=== PATIENT | female | born 1965 | race Caucasian/White ===

== ENCOUNTER → 2017-04-27 | Outpatient (CLI) | payer OTHER ==
[2017-04-27 08:05] LABS: Basophils # (A) 0.1 k/uL (0-0.2); Basophils % (A) 1 %; CH 32.3; CHCM 34.2; Eosinophils # (A) 0.3 k/uL (0-0.7); Eosinophils % (A) 3 %; HCT 46.1 % (34.0-46.0); HDW 2.33; HGB 15.1 gm/dL (11.4-16.0); Luc % (Auto) 4; Lymphocytes # (A) 3.2 k/uL (1.0-4.8); Lymphocytes % (A) 35 %; MCHC 32.7 g/dL (31.0-37.0); MCV 94.9 fL (80.0-100.0); Mean Platelet Volume 7.1; Monocytes # (A) 0.5 k/uL (0-1.0); Monocytes % (A) 5 %; Neutrophils # (A) 4.6 k/uL (1.3-7.7); Neutrophils % (A) 51 %; RBC 4.86 m/uL (3.80-5.40); RDW 14.5 % (11.5-15.5); WBC 9.1 k/uL (3.8-10.6); WBC (Perox) 8.97
[2017-04-27 08:46] LABS: ALT 31 U/L (9-52); AST 17 U/L (14-36); Alkaline Phosphatase 90 U/L (38-126); Anion Gap 9 mmol/L; Blood Urea Nitrogen 14 mg/dL (7-17); Calcium 9.7 mg/dL (8.4-10.2); Carbon Dioxide 29 mmol/L (22-30); Chloride 102 mmol/L (98-107); Cholesterol 216 mg/dL (<200); Glucose 83 mg/dL (74-99); HDL Cholesterol 61 mg/dL (40-60); Non-African American GFR(MDRD) >60 (>60 ml/min/1.73 sqM); Potassium 4.4 mmol/L (3.5-5.1); Sodium 140 mmol/L (137-145); Total Bilirubin 0.6 mg/dL (0.2-1.3); Total Protein 7.1 g/dL (6.3-8.2)
== END | disposition home or self-care (01) ==
LOC: LABWHC1 06:35
PROVIDERS: ATTEND Internal Medicine
DX: Z00.00 Encounter for general adult medical examination without abnormal findings (principal); E78.5 Hyperlipidemia, unspecified; H81.09 Meniere's disease, unspecified ear
CPT/HCPCS: 36415; 80053; 80061; 84439; 84443; 85025

== ENCOUNTER 2017-05-22 09:48 | Day surgery (SDC) | payer OTHER ==
[2017-05-18 08:45] VITALS: BMI 30.7
[~2017-05-22 09:48] MED LIST: LACTATED RINGERS 1,000 ML IV SCH
[2017-05-22 10:44] VITALS: TEMP 97.8
[2017-05-22] MEDS ORDERED: PROPOFOL 10 MG/ML 20 ML VIAL IV ONE (10:58)
--- NOTE | 2017-05-22 11:23 | P.PCN ---
Date of Procedure: 05/22/17 Procedure(s) Performed: Procedure: Total colonoscopy. Preoperative diagnosis: Screening for neoplasia. Postoperative diagnosis: Exam within normal limits. Preparation: HalfLytely prep. Sedation: Was provided by anesthesia. Brief clinical history: The patient is a 52-year-old female who is scheduled for this evaluation because of age as her risk factor for screening for neoplasia. There is no family history of colon cancer. She has no abdominal complaints, bleeding or anemia. This would be her second colonoscopy. She, apparently, had an exam more than 8 years ago for bowel infection. Procedure: With the patient on her left lateral decubitus position and after informed consent and adequate sedation, the perianal area was inspected and it did not show any fissures or fistulas. There were no masses felt on digital rectal examination. The Olympus CFQ 160L video colonoscope was then inserted in the rectum in the usual fashion and advanced to the cecum. The mucosa appeared healthy. No polyps or tumors were seen or any obvious diverticular disease or other pathology. I retroflexed the endoscope in the rectum before the endoscope was withdrawn. The patient tolerated the procedure well. Plan: The patient was reassured. She will follow up with you as planned and I recommended repeat exam in 10 years.
[2017-05-22 11:25] VITALS: RESP 18
[2017-05-22 11:47] VITALS: BP 120/75; PULSE 61
== END 2017-05-22 12:10 | disposition home or self-care (01) ==
LOC: ORWHC2ENDO 09:48
DX: Z12.11 Encounter for screening for malignant neoplasm of colon (principal); H81.09 Meniere's disease, unspecified ear; F17.200 Nicotine dependence, unspecified, uncomplicated; Z79.899 Other long term (current) drug therapy
CPT/HCPCS: J2704; G0121

== ENCOUNTER → 2017-11-15 | Outpatient (CLI) | payer OTHER ==
[2017-11-15 08:23] VITALS: TEMP 98.5
--- NOTE | 2017-11-15 09:03 | P.HPOB ---
History of Present Illness H&P Date: 11/15/17 Chief Complaint: The patient is here for her routine gynecologic exam and mammogram. This is a 52 year old G2 to P2 with an LMP of 2005. She is status post [facility] for benign reasons. The patient has been having some hot flashes especially at night. She has also noticed vaginal dryness. Her symptoms have improved slightly with decreased smoking. She has been experiencing intermittent vulvar pruritus times one month. She denies discharge. She may have noticed a slight odor as well. Review of Systems She is getting about 16 pounds over the last year. She denies respiratory, cardiac, or G.I. problems. Past Medical History Past Medical History: Skin Disorder Additional Past Medical History / Comment(s): MENIERES. DRY PATCHES ON BACK OCC. History of Any Multi-Drug Resistant Organisms: None Reported Past Surgical History: Hysterectomy Additional Past Surgical History / Comment(s): COLONOSCOPY Past Anesthesia/Blood Transfusion Reactions: No Reported Reaction Past Psychological History: No Psychological Hx Reported Smoking Status: Current every day smoker (She is down to 6 cigarettes per day.) Past Alcohol Use History: None Reported Additional Past Alcohol Use History / Comment(s): SMOKES 1/2 PPD, 20 YEARS Past Drug Use History: None Reported Additional History: She has been with her boyfriend since 2012 and lives with him. 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 - Past Family History Father Family Medical History: Cancer Brother(s) Family Medical History: Cancer Additional Family Medical History / Comment(s): She has several aunts who had breast cancer. Medications and Allergies Home Medications Medication Instructions Recorded Confirmed Type Calcium (Unknown Dose) 1 tab PO DAILY 05/18/17 05/22/17 History L.acidoph,Paracasei, B.lactis 1 cap PO DAILY 05/18/17 05/22/17 History [Probiotic] Triamterene/Hydrochlorothiazid 1 each PO DAILY PRN 05/18/17 05/22/17 History [Triamterene-Hctz 37.5-25 mg Tb] Vitamin B-12 (Unsure Of Dose) 1 tab PO MOWE 05/18/17 05/22/17 History Vitamin C 1000 Mg Packet 1 dose PO MOWE 05/18/17 05/22/17 History Allergies Allergy/AdvReac Type Severity Reaction Status Date / Time albuterol Allergy Dyspnea Verified 05/22/17 10:31 cefaclor [From Ceclor] Allergy Rash/Hives Verified 05/22/17 10:31 cephalexin [From Keflex] Allergy Rash/Hives Verified 05/22/17 10:31 cetirizine [From Zyrtec] Allergy Unknown Verified 05/22/17 10:31 clarithromycin [From Biaxin] Allergy Rash/Hives Verified 05/22/17 10:31 doxycycline Allergy Rash/Hives Verified 05/22/17 10:31 hydroxyzine [From Atarax] Allergy Rash/Hives Verified 05/22/17 10:31 Iodinated Contrast- Oral and Allergy Rash/Hives Verified 05/22/17 10:31 IV Dye Penicillins Allergy Rash/Hives Verified 05/22/17 10:31 Sulfa (Sulfonamide Allergy Rash/Hives Verified 05/22/17 10:31 Antibiotics) Tetracyclines Allergy Rash/Hives Verified 05/22/17 10:31 Exam - Vital Signs Vital signs: Vital Signs Temp 11/15/17 08:04 98.5 F Intake and Output 11/14/17 11/15/17 11/15/17 22:59 06:59 14:59 Other: Weight 91.138 kg Patient Weight 11/16/17 06:59 Weight 91.138 kg BMI 32. Height 5'6". This is a well-developed well-nourished white female who is alert and oriented times 3 in no acute distress. HEENT: Within normal limits. NECK: Supple without mass or thyromegaly. CHEST AND LUNGS: Clear to auscultation. HEART: Regular rate and rhythm. BREASTS: Are without mass or discharge. AXILLARY EXAM: Negative for adenopathy. BACK: Negative for CVA tenderness. ABDOMEN: Soft, nontender, without palpable masses. PELVIC EXAM: Normal external genitalia without significant atrophy. There are no focal lesions and minimal erythema. Vagina appear normal and there is no unusual odor. There is no significant atrophy noted.. There is no unusual discharge. There is no evidence of prolapse. There are no palpable adnexal masses or tenderness. RECTAL EXAM: rectovaginal exam is negative for mass or tenderness and is negative for occult blood. EXTREMITIES: Nontender. IMPRESSION: 1. 52 year old female [place] status post [facility] for benign reasons who is in early menopause with mild vasomotor symptoms. 2. Intermittent vulvar pruritus times 1 month with no evidence of vaginitis. 3. Unremarkable gynecologic exam. PLAN: 1. Pap smears have been discontinued. 2. Self breast examination was discussed. 3. Screening mammogram will be done today. 4. Kenalog 0.1% cream b.i.d. PRN 5. Osteoporosis prevention was discussed. 6. She'll use a vaginal lubricant for her vaginal dryness. If dryness and discomfort persists she will call and we will consider prescribing vaginal estrogen. 7. The patient will return in one year and PRN.
[2017-11-15 10:02] VITALS: BMI 32.3
--- NOTE | 2017-11-20 10:35 | MM ---
Reason for exam: screening (asymptomatic). Last mammogram was performed 1 year and 2 months ago. History: Family history of breast cancer in aunt at age 60 and breast cancer in aunt at age 55. Physical Findings: A clinical breast exam by your physician is recommended on an annual basis and results should be correlated with mammographic findings. MG 3D Screening Mammo W/Cad Bilateral CC and MLO view(s) were taken. Prior study comparison: September 02, 2016, right breast MG 3d work up w/cad RT. August 23, 2016, bilateral MG screening mammo w CAD. The breast tissue is heterogeneously dense. This may lower the sensitivity of mammography. No significant changes when compared with prior studies. ASSESSMENT: Negative, BI-RAD 1 RECOMMENDATION: Routine screening mammogram of both breasts in 1 year.
== END | disposition home or self-care (01) ==
LOC: WWCWWP 07:47
PROVIDERS: ATTEND Obstetrics & Gynecology
DX: Z12.31 Encounter for screening mammogram for malignant neoplasm of breast (principal)
CPT/HCPCS: 77063; 77067

== ENCOUNTER → 2017-12-20 | Outpatient (CLI) | payer OTHER ==
[2017-12-20 08:24] VITALS: BP 108/68; PULSE 92; RESP 18; TEMP 97.7; BMI 31.3
--- NOTE | 2017-12-20 08:58 | P.PN ---
Progress Note - Text Progress Note Date: 12/20/17 Chief complaint: vulvar pruritus and burning times 3 days. HPI: this is a 52 year old G2 PII within LMP of 2005. The patient is complaining of vulvar pruritus and burning times 3 days. She also feels like there are skin tears near the anterior part of the vaginal opening. There is also some dysuria without urinary urgency. She also has noticed a slight vaginal odor without discharge. She had similar symptoms several weeks ago. When she was seen for her annual exam last month symptoms had resolved. She has been with her boyfriend since 2012. She tried using some Monistat cream on the vulva in this burned significantly. She also tried Divehi yogurt to the vulva which seemed to help temporarily. She denies seeing any blister type lesions. ROS: she denies fever. She has had some burning at the urinary opening as above. Physical exam: blood pressure 108/68, height 5'6", weight 200 pounds, temperature 97.7, pulse 92. This is a well-developed well-nourished white female who is alert and oriented times 3 in no acute distress. External genitalia: there is moderate generalized erythema and inflammation throughout the vulva. There are approximately 3 excoriated areas that are slightly scarred over at the anterior aspect of the vulva each measuring parsley 1 cm. These are noticed on both sides of the clitoris. There are also slightly cracked areas in the creases. The vagina shows small to moderate amount of grayish discharge moderate inconsistency. Period a slight odor is noted. Wet rohit: saline what rohit show some clue cells with motile curved short rods consistent with mobiluncus. It is negative for trichomonas. JAE wet mount is negative for hyphae. Impression: 1. Bacterial vaginosis consistent with mobiluncus. With moderate vulvar inflammation. 2. Possible genital HSV based on her history and clinical findings. Plan: 1. Metronidazole 500 mg PO b.i.d. times 7 days. 2. Kenalog 0.1% cream to the vulva b.i.d. PRN. She already has this prescription. 3. HSV testing was obtained from the excoriated areas of the vulva. She understands this test may be limited in that testing on a herpes lesion may be negative if done too late. 4. She will return if her symptoms are not improving. 5. Total times the patient 30 minutes.
--- NOTE | 2017-12-26 18:28 | P.PN ---
Progress Note - Text Progress Note Date: 12/26/17 The patient called because of side effects from metronidazole. She completed 5 days of her seven-day course of metronidazole which was prescribed for bacterial vaginosis. She developed some leg tingling and hand tingling. She went to the emergency room. She was advised to stop the oral metronidazole. She states her vulvar symptoms have resolved. HSV testing from the [facility] was negative for type I and type II. These results were given to the patient by phone. She was given a prescription for metronidazole gel from the emergency room. She states that the packaging states it is for rosacea. I've recommended that she not use this vaginally. Since she completed 5 days of the metronidazole by mouth I recommended she not use any additional antibiotic. Shoe will call if her symptoms recur.
== END | disposition home or self-care (01) ==
LOC: WWCWWP 07:55
PROVIDERS: ATTEND Obstetrics & Gynecology
DX: N76.2 Acute vulvitis (principal); N76.6 Ulceration of vulva
CPT/HCPCS: 87529

== ENCOUNTER 2017-12-25 18:03 | Emergency (ER) | payer OTHER ==
[2017-12-25] MEDS ORDERED: SODIUM CHLORIDE 0.9% 500 ML IV ONE (18:39)
--- NOTE | 2017-12-25 19:22 | CT ---
EXAMINATION TYPE: CT brain wo con DATE OF EXAM: 12/25/2017 COMPARISON: 11/05/2010 HISTORY: Right sided arm and facial numbness, bilateral leg numbness CT DLP: 1012.7 mGycm Automated exposure control for dose reduction was used. FINDINGS: Ventricles and sulci appear normal. There is no mass effect nor midline shift. There is no sign of in tracranial hemorrhage. The calvarium is intact. IMPRESSION: NEGATIVE CT SCAN OF THE BRAIN. NO CHANGE.
[2017-12-25 19:26] LABS: Basophils % (A) 0 %; Eosinophils # (A) 0.2 k/uL (0-0.7); Eosinophils % (A) 2 %; HGB 15.2 gm/dL (11.4-16.0); Lymphocytes # (A) 2.4 k/uL (1.0-4.8); Lymphocytes % (A) 22 %; MCH 30.1 pg (25.0-35.0); MCHC 33.8 g/dL (31.0-37.0); MCV 89.1 fL (80.0-100.0); Mean Platelet Volume 6.5; Monocytes # (A) 0.6 k/uL (0-1.0); Monocytes % (A) 5 %; Neutrophils # (A) 7.7 k/uL (1.3-7.7); Neutrophils % (A) 69 %; Platelet Count 295 k/uL (150-450); RBC 5.06 m/uL (3.80-5.40); RDW 13.1 % (11.5-15.5); WBC 11.1 k/uL (3.8-10.6)
[2017-12-25 19:27] LABS: Appearance,Urine Clear (Clear); Bilirubin,Urine Negative (Negative); Blood,Urine Negative (Negative); Color,Urine Light Yellow; Glucose,Urine (UA) Negative (Negative); Ketones,Urine Negative (Negative); Leukocyte Esterase,Urine Negative (Negative); Nitrite,Urine Negative (Negative); Protein,Urine Negative (Negative); Specific Gravity,Urine 1.004 (1.001-1.035); Urobilinogen,Urine <2.0 mg/dL (<2.0)
--- NOTE | 2017-12-25 19:28 | ED ---
General Adult HPI - General Chief complaint: Neuro Symptoms/Deficit Stated complaint: Facial Numbness/Poss Med Reaction Time Seen by Provider: 12/25/17 18:25 Source: patient Mode of arrival: ambulatory Limitations: no limitations - History of Present Illness Initial comments: This is a 52-year-old female who presents emergency department for multiple vague complaints. She states that it started this morning with some leg tingling and numbness. She states that it is in bilateral lower extremities however worse on the right. She states it's mostly in the posterior aspects of her legs and radiates down. She denies any weakness in the extremities. She states that she later on developed some right hand and forearm numbness as well as some right cheek numbness. She states that she had does not have any weakness in her arms or legs. She denies any speech or swallowing issues. No double vision. No blurred vision. She states that she "just feels off". She did recently start taking metronidazole for bacterial vaginosis about 4 days ago. She states that she did not have any issues with this however when she first started taking it. She is also on a diuretic for history of Mnire's however states that that does not feel similar to Mnire's disease. She denies any pain. No recent trauma or head injury. She does admit to polyuria however treats this to the diuretic. No other acute complaints. - Related Data Home Medications Medication Instructions Recorded Confirmed L.acidoph,Paracasei, B.lactis 1 cap PO DAILY 05/18/17 12/25/17 [Probiotic] Triamterene/Hydrochlorothiazid 1 tab PO DAILY 05/18/17 12/25/17 [Triamterene-Hctz 37.5-25 mg Tb] Previous Rx's Medication Instructions Recorded metroNIDAZOLE [Flagyl] 500 mg PO BID 7 Days #14 tab 12/20/17 metroNIDAZOLE [Metrogel 1%] 1 applic TOPICAL BID #4 tab 12/25/17 Allergies Allergy/AdvReac Type Severity Reaction Status Date / Time albuterol Allergy Dyspnea Verified 12/25/17 19:03 cefaclor [From Ceclor] Allergy Rash/Hives Verified 12/25/17 19:03 cephalexin [From Keflex] Allergy Rash/Hives Verified 12/25/17 19:03 cetirizine [From Zyrtec] Allergy Unknown Verified 12/25/17 19:03 clarithromycin [From Biaxin] Allergy Rash/Hives Verified 12/25/17 19:03 doxycycline Allergy Rash/Hives Verified 12/25/17 19:03 hydroxyzine [From Atarax] Allergy Rash/Hives Verified 12/25/17 19:03 Iodinated Contrast- Oral and Allergy Rash/Hives Verified 12/25/17 19:03 IV Dye Penicillins Allergy Rash/Hives Verified 12/25/17 19:03 Sulfa (Sulfonamide Allergy Rash/Hives Verified 12/25/17 19:03 Antibiotics) Tetracyclines Allergy Rash/Hives Verified 12/25/17 19:03 Review of Systems ROS Statement: Those systems with pertinent positive or pertinent negative responses have been documented in the HPI. ROS Other: All systems not noted in ROS Statement are negative. Past Medical History Past Medical History: Skin Disorder Additional Past Medical History / Comment(s): MENIERES. DRY PATCHES ON BACK OCC. History of Any Multi-Drug Resistant Organisms: None Reported Past Surgical History: Hysterectomy Additional Past Surgical History / Comment(s): COLONOSCOPY Past Anesthesia/Blood Transfusion Reactions: No Reported Reaction Past Psychological History: No Psychological Hx Reported Smoking Status: Current every day smoker Past Alcohol Use History: None Reported Past Drug Use History: None Reported - Past Family History Father Family Medical History: Cancer Brother(s) Family Medical History: Cancer Additional Family Medical History / Comment(s): She has several aunts who had breast cancer. General Exam - General Exam Comments Initial Comments: Constitutional: Awake alert Appears comfortable Head: Normocephalic atraumatic Eyes: no conjunctival injection No scleral icterus EOMI Neck: No JVD Supple Heart: Regular rate rhythm normal S1-S2 no murmurs Lungs: Clear to auscultation bilaterally No wheezing No rales Abdomen: Soft nondistended nontender Extremities: Non edematous DP pulses intact Radial pulses intact Neuro: A&Ox3 cranial nerves II through XII are grossly intact, 5 out of 5 strength in upper and lower extremities bilaterally, normal finger to nose and heel to anderson testing, the patient reports that there is a tingling sensation in bilateral legs, also reports decreased sensation to the right jaw region when compared to the left Psych: Appropriate mood and affect Limitations: no limitations Course Vital Signs 12/25/17 12/25/17 18:15 20:21 Temperature 97.6 F 98.3 F Pulse Rate 97 73 Respiratory 18 16 Rate Blood Pressure 142/72 118/67 O2 Sat by Pulse 98 97 Oximetry Medical Decision Making - Medical Decision Making This is a 52-year-old female who came to the emergency department mostly for right-sided facial numbness and bilateral leg numbness. There is no focal neurologic deficits on examination. The patient reported decreased sensation however was able to feel. The patient had blood work performed that was completely unremarkable. CT the head was negative for any ischemic changes or hemorrhage or masses. At this time it's suspected that this could be a reaction from the medication Flagyl. The patient's going to have this discharged and I started her on MetroGel for hopes of decreasing side effects. She was given 4 doses to complete her course. Told to return if she develops focal weakness or worsening or symptoms. All questions were answered. - Lab Data Result diagrams: 12/25/17 19:05 12/25/17 19:05 Lab Results 12/25/17 12/25/17 12/25/17 Range/Units 19:05 19:05 19:05 WBC 11.1 H (3.8-10.6) k/uL RBC 5.06 (3.80-5.40) m/uL Hgb 15.2 (11.4-16.0) gm/dL Hct 45.0 (34.0-46.0) % MCV 89.1 (80.0-100.0) fL MCH 30.1 (25.0-35.0) pg MCHC 33.8 (31.0-37.0) g/dL RDW 13.1 (11.5-15.5) % Plt Count 295 (150-450) k/uL Neutrophils % 69 % Lymphocytes % 22 % Monocytes % 5 % Eosinophils % 2 % Basophils % 0 % Neutrophils # 7.7 (1.3-7.7) k/uL Lymphocytes # 2.4 (1.0-4.8) k/uL Monocytes # 0.6 (0-1.0) k/uL Eosinophils # 0.2 (0-0.7) k/uL Basophils # 0.0 (0-0.2) k/uL Sodium 140 (137-145) mmol/L Potassium 3.9 (3.5-5.1) mmol/L Chloride 100 (98-107) mmol/L Carbon Dioxide 28 (22-30) mmol/L Anion Gap 12 mmol/L BUN 14 (7-17) mg/dL Creatinine 0.70 (0.52-1.04) mg/dL Est GFR (CKD-EPI)AfAm >90 (>60 ml/min/1.73 sqM) Est GFR (CKD-EPI)NonAf >90 (>60 ml/min/1.73 sqM) Glucose 114 H (74-99) mg/dL Calcium 10.2 (8.4-10.2) mg/dL Magnesium 2.0 (1.6-2.3) mg/dL Total Bilirubin 0.4 (0.2-1.3) mg/dL AST 23 (14-36) U/L ALT 26 (9-52) U/L Alkaline Phosphatase 91 (38-126) U/L Total Protein 7.4 (6.3-8.2) g/dL Albumin 4.9 (3.5-5.0) g/dL Urine Color Light Yellow Urine Appearance Clear (Clear) Urine pH 7.0 (5.0-8.0) Ur Specific [employer] 1.004 (1.001-1.035) Urine Protein Negative (Negative) Urine Glucose (UA) Negative (Negative) Urine Ketones Negative (Negative) Urine Blood Negative (Negative) Urine Nitrite Negative (Negative) Urine Bilirubin Negative (Negative) Urine Urobilinogen <2.0 (<2.0) mg/dL Ur Leukocyte Esterase Negative (Negative) Disposition Clinical Impression: Paresthesias Disposition: HOME SELF-CARE Condition: Stable Instructions: Paresthesia (ED) Additional Instructions: Stop taking oral metronidazole. Prescriptions: metroNIDAZOLE [Metrogel 1%] 1 applic TOPICAL BID #4 tab Is patient prescribed a controlled substance at d/c from ED?: No Referrals: Rome Briones MD [Primary Care Provider] - 1-2 days
[2017-12-25 19:34] LABS: ALT 26 U/L (9-52); AST 23 U/L (14-36); Albumin 4.9 g/dL (3.5-5.0); Alkaline Phosphatase 91 U/L (38-126); Anion Gap 12 mmol/L; Blood Urea Nitrogen 14 mg/dL (7-17); Calcium 10.2 mg/dL (8.4-10.2); Carbon Dioxide 28 mmol/L (22-30); Chloride 100 mmol/L (98-107); Glucose 114 mg/dL (74-99); Potassium 3.9 mmol/L (3.5-5.1); Sodium 140 mmol/L (137-145); Total Bilirubin 0.4 mg/dL (0.2-1.3); Total Protein 7.4 g/dL (6.3-8.2)
[2017-12-25 20:22] VITALS: BP 118/67; PULSE 73; RESP 16; TEMP 98.3
== END 2017-12-25 20:29 | disposition home or self-care (01) ==
LOC: EC 18:03
DX: R20.2 Paresthesia of skin (principal); F17.200 Nicotine dependence, unspecified, uncomplicated; Z79.899 Other long term (current) drug therapy; Z88.0 Allergy status to penicillin; Z88.1 Allergy status to other antibiotic agents; Z88.2 Allergy status to sulfonamides; Z91.041 Radiographic dye allergy status; Z88.8 Allergy status to other drugs, medicaments and biological substances
CPT/HCPCS: 36415; 70450; 80053; 81003; 83735; 85025; 96360; 99284

== ENCOUNTER → 2018-03-05 | Outpatient (CLI) | payer OTHER ==
[2018-03-05 17:30] LABS: Basophils # (A) 0.1 k/uL (0-0.2); Basophils % (A) 1 %; Eosinophils # (A) 0.3 k/uL (0-0.7); Eosinophils % (A) 3 %; HCT 41.4 % (34.0-46.0); HGB 13.9 gm/dL (11.4-16.0); Lymphocytes # (A) 3.3 k/uL (1.0-4.8); Lymphocytes % (A) 35 %; MCHC 33.5 g/dL (31.0-37.0); MCV 92.3 fL (80.0-100.0); Mean Platelet Volume 6.6; Monocytes # (A) 0.5 k/uL (0-1.0); Monocytes % (A) 5 %; Neutrophils # (A) 4.9 k/uL (1.3-7.7); Neutrophils % (A) 52 %; Platelet Count 240 k/uL (150-450); RBC 4.48 m/uL (3.80-5.40); RDW 13.2 % (11.5-15.5); WBC 9.5 k/uL (3.8-10.6)
[2018-03-05 17:57] LABS: Uric Acid 5.3 mg/dL (3.7-7.4)
[2018-03-05 18:28] LABS: C Reactive Protein <5.0 mg/L (<10.0)
[2018-03-05 18:33] LABS: Erythrocyte Sedimentation Rate 10 mm/hr (0-20)
[2018-03-06 00:35] LABS: Rheumatoid Factor 6 IU/mL (0-15)
== END | disposition home or self-care (01) ==
LOC: LABWHC1 17:04
PROVIDERS: ATTEND Podiatrist Foot & Ankle Surgery
DX: D64.9 Anemia, unspecified (principal); M19.90 Unspecified osteoarthritis, unspecified site
CPT/HCPCS: 36415; 84550; 85025; 85652; 86038; 86140; 86431

== ENCOUNTER → 2019-02-20 | Outpatient (CLI) | payer OTHER ==
[2019-02-20 07:33] LABS: HGB 14.3 gm/dL (11.4-16.0); MCH 29.8 pg (25.0-35.0); MCHC 31.9 g/dL (31.0-37.0); MCV 93.6 fL (80.0-100.0); Mean Platelet Volume 6.4; Platelet Count 260 k/uL (150-450); RBC 4.81 m/uL (3.80-5.40); RDW 13.9 % (11.5-15.5); WBC 8.9 k/uL (3.8-10.6)
[2019-02-20 09:01] LABS: Band Neutrophils % 1 %; Eosinophils # (M) 0.27 k/uL (0-0.7); Lymphocytes # (M) 2.31 k/uL (1.0-4.8); Monocytes # (M) 0.89 k/uL (0-1.0); Neutrophils % (M) 60 %; Nucleated Red Blood Cells 0 /100 WBC (0-0); Total Cells Counted 100
[2019-02-20 12:04] LABS: African American GFR (CKD) 85.8 (60.0-200.0); Albumin 4.5 g/dL (3.80-4.90); Albumin/Globulin Ratio 2.37 (1.60-3.17); Anion Gap 6.9 mmol/L (4.00-12.00); Carbon Dioxide 32.1 mmol/L (21.6-31.8); Globulin 1.9 g/dL (1.6-3.3); LDL Cholesterol,Calculated 137.8 mg/dL (0.0-131.0); Potassium 4.1 mmol/L (3.5-5.5); Total Bilirubin 0.5 mg/dL (0.2-1.2); Total Protein 6.4 g/dL (6.2-8.2); VLDL Calculation 25.2 mg/dL (5.00-40.00)
[2019-02-20 12:12] LABS: T4, Free (Free Thyroxine) 1.2 ng/dL (0.80-1.80)
== END | disposition home or self-care (01) ==
LOC: LABWHC1 06:40
PROVIDERS: ATTEND Internal Medicine
DX: E78.1 Pure hyperglyceridemia (principal)
CPT/HCPCS: 36415; 80053; 80061; 84439; 84443; 85025

== ENCOUNTER → 2019-03-25 | Outpatient (CLI) | payer OTHER ==
--- NOTE | 2019-03-25 15:40 | XR ---
EXAMINATION TYPE: XR elbow complete LT DATE OF EXAM: 03/25/2019 CLINICAL HISTORY: pain TECHNIQUE: Frontal, lateral and oblique images of the left elbow are obtained. COMPARISON: None. FINDINGS: There is no acute fracture/dislocation evident of the elbow. No abnormal fat pad signs ar e seen. The overlying soft tissue appears unremarkable. IMPRESSION: There is no acute fracture or dislocation of the elbow. ICD 10 NO FRACTURE, INITIAL EVALUATION
== END | disposition home or self-care (01) ==
LOC: RADXRMAIN 12:13
PROVIDERS: ATTEND Internal Medicine
DX: M25.522 Pain in left elbow (principal)

== ENCOUNTER 2019-10-09 20:14 | Emergency (ER) | payer OTHER ==
[2019-10-09] MEDS ORDERED: SODIUM CHLORIDE 0.9% 500 ML 500 ML IV STA (21:33)
[2019-10-09] MEDS ORDERED: MORPHINE SULFATE 4 MG/ML SYRINGE IV STA (21:33)
[2019-10-09] MEDS ORDERED: PANTOPRAZOLE 40 MG/10 ML VIAL IVP STA (21:33)
[2019-10-09] MEDS ORDERED: SODIUM CHLORIDE 0.9% 1,000 ML IV STA ×2 (21:33)
[2019-10-09] MEDS ORDERED: ONDANSETRON 4 MG/2 ML VIAL IVP STA (21:33)
--- NOTE | 2019-10-09 21:33 | ED ---
Abdominal Pain HPI - General Chief Complaint: Abdominal Pain Stated Complaint: R Side Pain Time Seen by Provider: 10/09/19 20:47 Source: patient, RN notes reviewed, old records reviewed Mode of arrival: ambulatory Limitations: no limitations - History of Present Illness Initial Comments: This is a 54-year-old female DF for evaluation patient has a for evaluation regards to abdominal pain and right-sided abdominal pain and right-sided flank pain radiating anterior abdomen. No traumas no fevers mild nausea no vomiting. No diarrhea. No prior history of abdominal surgery. No history of gallbladder disease. No significant complaints. Dolph pain began yesterday has been increasing throughout the day reprise sudden onset and has been persistent. No modifying factors MD Complaint: abdominal pain -: hour(s) Location: RLQ, epigastric, R flank Radiation: RLQ Migration to: RLQ Severity: moderate Severity scale (1-10): 4 Quality: aching Consistency: constant Improves With: nothing Worsens With: nothing Associated Symptoms: nausea - Related Data Home Medications Medication Instructions Recorded Confirmed L.acidoph,Paracasei, B.lactis 1 cap PO DAILY 05/18/17 03/06/19 [Probiotic] Previous Rx's Medication Instructions Recorded Estrogens, Conjugated Cream 1 g VAGINAL DIRECTED #1 tube 03/06/19 [Premarin Cream] Allergies Allergy/AdvReac Type Severity Reaction Status Date / Time albuterol Allergy Dyspnea Verified 10/09/19 20:25 cefaclor [From Ceclor] Allergy Rash/Hives Verified 10/09/19 20:25 cephalexin [From Keflex] Allergy Rash/Hives Verified 10/09/19 20:25 cetirizine [From Zyrtec] Allergy Unknown Verified 10/09/19 20:25 clarithromycin [From Biaxin] Allergy Rash/Hives Verified 10/09/19 20:25 doxycycline Allergy Rash/Hives Verified 10/09/19 20:25 hydroxyzine [From Atarax] Allergy Rash/Hives Verified 10/09/19 20:25 Iodinated Contrast Media Allergy Rash/Hives Verified 10/09/19 20:25 [Iodinated Contrast- Oral and IV Dye] metronidazole Allergy Unknown Verified 10/09/19 20:25 Penicillins Allergy Rash/Hives Verified 10/09/19 20:25 Sulfa (Sulfonamide Allergy Rash/Hives Verified 10/09/19 20:25 Antibiotics) Tetracyclines Allergy Rash/Hives Verified 10/09/19 20:25 levofloxacin [From Levaquin] AdvReac Unknown Verified 10/09/19 20:25 Review of Systems ROS Statement: Those systems with pertinent positive or pertinent negative responses have been documented in the HPI. ROS Other: All systems not noted in ROS Statement are negative. 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 History of Any Multi-Drug Resistant Organisms: None Reported Past Surgical History: Hysterectomy Additional Past Surgical History / Comment(s): DELLA in 2006. COLONOSCOPY 2018. Past Anesthesia/Blood Transfusion Reactions: No Reported Reaction Past Psychological History: No Psychological Hx Reported Smoking Status: Current every day smoker Past Alcohol Use History: None Reported Past Drug Use History: None Reported - Past Family History Father Family Medical History: Myocardial Infarction ([place]) Brother(s) Family Medical History: Myocardial Infarction [place] Additional Family Medical History / Comment(s): She has several aunts who had breast cancer. General Exam Limitations: no limitations General appearance: alert, in no apparent distress Head exam: Present: atraumatic, normocephalic, normal inspection Eye exam: Present: normal appearance, PERRL, EOMI. Absent: scleral icterus, conjunctival injection, periorbital swelling ENT exam: Present: normal exam, mucous membranes moist Neck exam: Present: normal inspection. Absent: tenderness, meningismus, lymphadenopathy Respiratory exam: Present: normal lung sounds bilaterally. Absent: respiratory distress, wheezes, rales, rhonchi, stridor Cardiovascular Exam: Present: regular rate, normal rhythm, normal heart sounds. Absent: systolic murmur, diastolic murmur, rubs, gallop, clicks GI/Abdominal exam: Present: soft, normal bowel sounds. Absent: distended, tenderness, guarding, rebound, rigid Extremities exam: Present: normal inspection, full ROM, normal capillary refill. Absent: tenderness, pedal edema, joint swelling, calf tenderness Back exam: Present: normal inspection Neurological exam: Present: alert, oriented X3, CN II-XII intact Psychiatric exam: Present: normal affect, normal mood Skin exam: Present: warm, dry, intact, normal color. Absent: rash Course Vital Signs 10/09/19 10/09/1910/09/20 20:23 21:55 22:48 Temperature 98.2 F 97.9 F Pulse Rate 85 80 77 Respiratory 20 18 18 Rate Blood Pressure 149/87 130/68 119/67 O2 Sat by Pulse 99 97 95 Oximetry - Reevaluation(s) Reevaluation #1: 10/09/19 22:01 medical Records reviewed Reevaluation #2: 10/09/19 23:35 Patient having adequate pain control currently bleeding drink without difficulty Reevaluation #3: 10/09/19 23:35 Patient informed of results feels good, will tell discharged home return if pain worsens Medical Decision Making - Medical Decision Making 52 female here with right-sided abdominal pain right-sided flank pain. Possible history or possible kidney stone. She does have Hematuria her CT abdomen and pelvis is otherwise negative for acute disease patient will be discharged home with abdominal pain pain control - Lab Data Result diagrams: 10/09/19 20:45 10/09/19 20:45 Lab Results 10/09/19 10/09/19 10/09/19 Range/Units 20:45 20:45 20:45 WBC 8.6 (3.8-10.6) k/uL RBC 4.84 (3.80-5.40) m/uL Hgb 14.6 (11.4-16.0) gm/dL Hct 43.9 (34.0-46.0) % MCV 90.7 (80.0-100.0) fL MCH 30.1 (25.0-35.0) pg MCHC 33.2 (31.0-37.0) g/dL RDW 13.0 (11.5-15.5) % Plt Count 254 (150-450) k/uL Neutrophils % (Manual) 51 % Band Neutrophils % 1 % Lymphocytes % (Manual) 40 % Monocytes % (Manual) 8 % Neutrophils # (Manual) 4.40 (1.3-7.7) k/uL Lymphocytes # (Manual) 3.44 (1.0-4.8) k/uL Monocytes # (Manual) 0.69 (0-1.0) k/uL Nucleated RBCs 0 (0-0) /100 WBC Manual Slide Review Performed Sodium 137 (137-145) mmol/L Potassium 4.5 (3.5-5.1) mmol/L Chloride 103 (98-107) mmol/L Carbon Dioxide 25 (22-30) mmol/L Anion Gap 9 mmol/L BUN 14 (7-17) mg/dL Creatinine 0.78 (0.52-1.04) mg/dL Est GFR (CKD-EPI)AfAm >90 (>60 ml/min/1.73 sqM) Est GFR (CKD-EPI)NonAf 88 (>60 ml/min/1.73 sqM) Glucose 116 H (74-99) mg/dL Plasma Lactic Acid [place] (0.7-2.0) mmol/L Calcium 9.8 (8.4-10.2) mg/dL Total Bilirubin 0.7 (0.2-1.3) mg/dL AST 22 (14-36) U/L ALT 16 (4-34) U/L Alkaline Phosphatase 82 (38-126) U/L Total Protein 7.0 (6.3-8.2) g/dL Albumin 4.5 (3.5-5.0) g/dL Amylase 36 (30-110) U/L Lipase 148 (23-300) U/L Urine Color Yellow Urine Appearance Cloudy H (Clear) Urine pH 6.0 (5.0-8.0) Ur Specific [place] 1.020 (1.001-1.035) Urine Protein Negative (Negative) Urine Glucose (UA) Negative (Negative) Urine Ketones Trace H (Negative) Urine Blood Small H (Negative) Urine Nitrite Negative (Negative) Urine Bilirubin Negative (Negative) Urine Urobilinogen <2.0 (<2.0) mg/dL Ur Leukocyte Esterase Negative (Negative) Urine RBC 8 H (0-5) /hpf Urine WBC 1 (0-5) /hpf Ur Squamous Epith Cells 8 H (0-4) /hpf Urine Bacteria Rare H (None) /hpf Urine Mucus Few H (None) /hpf Urine HCG, Qual (Not Detectd) 10/09/19 10/09/19 Range/Units 20:45 20:45 WBC (3.8-10.6) k/uL RBC (3.80-5.40) m/uL Hgb (11.4-16.0) gm/dL Hct (34.0-46.0) % MCV (80.0-100.0) fL MCH (25.0-35.0) pg MCHC (31.0-37.0) g/dL RDW (11.5-15.5) % Plt Count (150-450) k/uL Neutrophils % (Manual) % Band Neutrophils % % Lymphocytes % (Manual) % Monocytes % (Manual) % Neutrophils # (Manual) (1.3-7.7) k/uL Lymphocytes # (Manual) (1.0-4.8) k/uL Monocytes # (Manual) (0-1.0) k/uL Nucleated RBCs (0-0) /100 WBC Manual Slide Review Sodium (137-145) mmol/L Potassium (3.5-5.1) mmol/L Chloride (98-107) mmol/L Carbon Dioxide (22-30) mmol/L Anion Gap mmol/L BUN (7-17) mg/dL Creatinine (0.52-1.04) mg/dL Est GFR (CKD-EPI)AfAm (>60 ml/min/1.73 sqM) Est GFR (CKD-EPI)NonAf (>60 ml/min/1.73 sqM) Glucose (74-99) mg/dL Plasma Lactic Acid [place] 1.1 (0.7-2.0) mmol/L Calcium (8.4-10.2) mg/dL Total Bilirubin (0.2-1.3) mg/dL AST (14-36) U/L ALT (4-34) U/L Alkaline Phosphatase (38-126) U/L Total Protein (6.3-8.2) g/dL Albumin (3.5-5.0) g/dL Amylase (30-110) U/L Lipase (23-300) U/L Urine Color Urine Appearance (Clear) Urine pH (5.0-8.0) Ur Specific [place] (1.001-1.035) Urine Protein (Negative) Urine Glucose (UA) (Negative) Urine Ketones (Negative) Urine Blood (Negative) Urine Nitrite (Negative) Urine Bilirubin (Negative) Urine Urobilinogen (<2.0) mg/dL Ur Leukocyte Esterase (Negative) Urine RBC (0-5) /hpf Urine WBC (0-5) /hpf Ur Squamous Epith Cells (0-4) /hpf Urine Bacteria (None) /hpf Urine Mucus (None) /hpf Urine HCG, Qual Not Detected (Not Detectd) - Radiology Data Radiology results: report reviewed (CT pelvis is negative for acute disease), image reviewed Disposition Clinical Impression: Abdominal pain, Hematuria Disposition: HOME SELF-CARE Condition: Good Instructions (If sedation given, give patient instructions): Abdominal Pain (ED) Is patient prescribed a controlled substance at d/c from ED?: No Referrals: Rome Briones MD [Primary Care Provider] - 1-2 days
[2019-10-09] MEDS ORDERED: diphenhydrAMINE 50 MG/ML 1 ML VIAL IVP STA (21:51)
[2019-10-09] MEDS ORDERED: methylPREDNISolone SOD SUCCI 125 MG/2 ML VIAL IV STA (21:51)
[2019-10-09] MEDS ORDERED: FAMOTIDINE 20 MG/2 ML VIAL IV STA (21:51)
[2019-10-09 21:54] LABS: Appearance,Urine Cloudy (Clear); Bacteria,Urine Rare /hpf; Bilirubin,Urine Negative (Negative); Blood,Urine Small (Negative); Color,Urine Yellow; Glucose,Urine (UA) Negative (Negative); Ketones,Urine Trace (Negative); Leukocyte Esterase,Urine Negative (Negative); Mucus,Urine Few /hpf; Nitrite,Urine Negative (Negative); Protein,Urine Negative (Negative); RBC,Urine 8 /hpf (0-5); Squamous Epithelial Cell,Urine 8 /hpf (0-4); Urobilinogen,Urine <2.0 mg/dL (<2.0); WBC,Urine 1 /hpf (0-5)
[2019-10-09 21:56] VITALS: RESP 18
[2019-10-09 21:57] LABS: HCT 43.9 % (34.0-46.0); HGB 14.6 gm/dL (11.4-16.0); MCH 30.1 pg (25.0-35.0); MCHC 33.2 g/dL (31.0-37.0); MCV 90.7 fL (80.0-100.0); Mean Platelet Volume 6.9; Platelet Count 254 k/uL (150-450); RBC 4.84 m/uL (3.80-5.40); WBC 8.6 k/uL (3.8-10.6)
[2019-10-09 22:01] LABS: ALT 16 U/L (4-34); AST 22 U/L (14-36); African American GFR (CKD) >90 (>60 ml/min/1.73 sqM); Albumin 4.5 g/dL (3.5-5.0); Alkaline Phosphatase 82 U/L (38-126); Amylase 36 U/L (30-110); Anion Gap 9 mmol/L; Blood Urea Nitrogen 14 mg/dL (7-17); Calcium 9.8 mg/dL (8.4-10.2); Carbon Dioxide 25 mmol/L (22-30); Chloride 103 mmol/L (98-107); Glucose 116 mg/dL (74-99); Non-African American GFR(CKD) 88 (>60 ml/min/1.73 sqM); Potassium 4.5 mmol/L (3.5-5.1); Sodium 137 mmol/L (137-145); Total Bilirubin 0.7 mg/dL (0.2-1.3)
[2019-10-09 22:35] LABS: Band Neutrophils % 1 %; Lymphocytes # (M) 3.44 k/uL (1.0-4.8); Monocytes # (M) 0.69 k/uL (0-1.0); Neutrophils % (M) 51 %; Nucleated Red Blood Cells 0 /100 WBC (0-0); Total Cells Counted 100
--- NOTE | 2019-10-09 22:39 | CT ---
EXAMINATION TYPE: CT abdomen pelvis w con DATE OF EXAM: 10/09/2019 COMPARISON: None HISTORY: RLQ pain that started yesterday. CT DLP: 1214.2 mGycm Automated exposure control for dose reduction was used. CONTRAST: Performed with IV Contrast, patient injected with 100 mL of Isovue 300. Multiple axial sections were obtained from the diaphragm to the floor the pelvis with intravenous con trast. Lung bases are clear. There is no pleural effusion. Heart size is normal. There is no pericardial eff usion. There is 2 cm cyst in the anterior right lobe of the liver. Spleen is intact. Stomach is intac t. There is no pancreatic mass. Gallbladder appears normal. There is no adrenal mass. Kidneys show satisfactory contrast opacification. There is no hydronephrosi s. There is no retroperitoneal adenopathy. Bladder distends smoothly. There is no inguinal hernia. Ap pendix appears normal. Delayed images show normal renal excretion. Bony pelvis is intact. Lumbar spine is intact. There is no compression fracture. I see no bony destru ctive process. There is no mesenteric edema. There is no ascites or free air. There is no evidence of bowel obstruct ion. IMPRESSION: Negative CT scan abdomen and pelvis. Normal appendix.
[2019-10-09] MEDS ORDERED: ACET/COD 300 MG/30 MG STARTER PACK 6 TAB BTL PO STA (23:34)
[2019-10-09] MEDS ORDERED: ONDANSETRON 4 MG ODT STARTER PACK 2 TAB BTL PO STA (23:34)
[2019-10-09 23:54] VITALS: BP 130/82; PULSE 69; TEMP 97.8
== END 2019-10-09 23:56 | disposition home or self-care (01) ==
LOC: EC 20:14
DX: R31.9 Hematuria, unspecified (principal); R10.31 Right lower quadrant pain; F17.200 Nicotine dependence, unspecified, uncomplicated; Z88.1 Allergy status to other antibiotic agents; Z88.8 Allergy status to other drugs, medicaments and biological substances; Z91.041 Radiographic dye allergy status; Z88.0 Allergy status to penicillin; Z88.2 Allergy status to sulfonamides; Z98.890 Other specified postprocedural states
CPT/HCPCS: 36415; 80053; 82150; 83605; 83690; 85025; 81001; 81025; 74177; 99285; 96374; 96375 ×4; 96361 ×2; J2270; J1200; J2930; S0119; C9113; Q9967

== ENCOUNTER → 2019-10-09 | Outpatient (CLI) | payer OTHER ==
[2019-10-09 19:09] LABS: Appearance,Urine Clear (Clear); Bacteria,Urine Occasional /hpf; Bilirubin,Urine Negative (Negative); Blood,Urine Trace (Negative); Color,Urine Yellow; Glucose,Urine (UA) Negative (Negative); Ketones,Urine Negative (Negative); Leukocyte Esterase,Urine Negative (Negative); Mucus,Urine Moderate /hpf; Nitrite,Urine Negative (Negative); PH, Urine 5.5 (5.0-8.0); Protein,Urine Negative (Negative); RBC,Urine 7 /hpf (0-5); Specific Gravity,Urine 1.018 (1.001-1.035); Squamous Epithelial Cell,Urine 2 /hpf (0-4); Urobilinogen,Urine <2.0 mg/dL (<2.0); WBC,Urine 2 /hpf (0-5)
[2019-10-09 21:49] LABS: Basophils % (A) 0 %; Eosinophils # (A) 0.2 k/uL (0-0.7); Eosinophils % (A) 2 %; HCT 45.8 % (34.0-46.0); Lymphocytes # (A) 3.6 k/uL (1.0-4.8); Lymphocytes % (A) 35 %; MCHC 32.6 g/dL (31.0-37.0); MCV 94.8 fL (80.0-100.0); Mean Platelet Volume 7.5; Monocytes # (A) 0.5 k/uL (0-1.0); Monocytes % (A) 4 %; Neutrophils # (A) 5.5 k/uL (1.3-7.7); Neutrophils % (A) 54 %; Platelet Count 265 k/uL (150-450); RBC 4.83 m/uL (3.80-5.40); WBC 10.3 k/uL (3.8-10.6)
[2019-10-10 00:55] LABS: African American GFR (CKD) 98.2 (60.0-200.0); Albumin/Globulin Ratio 2.78 (1.60-3.17); BUN/Creat Ratio 16.25 Ratio (12.00-20.00); Calcium 9.9 mg/dL (8.7-10.3); Globulin 1.8 g/dL (1.6-3.3); Non-African American GFR(CKD) 84.8 (60.0-200.0); Potassium 4.3 mmol/L (3.5-5.5); Total Bilirubin 0.4 mg/dL (0.3-1.2); Total Protein 6.8 g/dL (6.2-8.2)
== END | disposition home or self-care (01) ==
LOC: LABWHC1 17:03
PROVIDERS: ATTEND Internal Medicine Critical Care Medicine
DX: E78.5 Hyperlipidemia, unspecified (principal); R10.9 Unspecified abdominal pain; H81.03 Meniere's disease, bilateral
CPT/HCPCS: 36415; 80053; 81001; 85025

== ENCOUNTER 2019-10-11 10:03 | Emergency (ER) | payer OTHER ==
[2019-10-11] MEDS ORDERED: MORPHINE SULFATE 2 MG/ML SYRINGE IVP STA (10:27)
[2019-10-11] MEDS ORDERED: ONDANSETRON 4 MG/2 ML VIAL IVP STA (10:27)
[2019-10-11] MEDS ORDERED: SODIUM CHLORIDE 0.9% 1,000 ML IV STA (10:27)
[2019-10-11] MEDS ORDERED: KETOROLAC 30 MG/ML 1 ML VIAL IVP STA (10:27)
[2019-10-11] MEDS ORDERED: TAMSULOSIN 0.4 MG CAP.ER.24H PO STA (10:28)
--- NOTE | 2019-10-11 10:30 | ED ---
Abdominal Pain HPI - General Chief Complaint: Abdominal Pain Stated Complaint: back pain-revisit Time Seen by Provider: 10/11/19 10:19 Source: patient, RN notes reviewed, old records reviewed Mode of arrival: ambulatory Limitations: no limitations - History of Present Illness Initial Comments: Brielle is a 54-year-old female who presents emergency Department today for reevaluation for right flank pain. Patient reports that she was seen in the emergency department 2 days ago. Was diagnosed with hematuria and possible kidney stone small. Patient states that they were not able to identified on computed tomography scan at that time. A computed tomography scan was done with contrast. Patient reports that she has had no fevers or chills. She is only taking 2 of the Tylenol with codeine before deciding to come back for evaluation. Patient states that she has had no vomiting. - Related Data Home Medications Medication Instructions Recorded Confirmed L.acidoph,Paracasei, B.lactis 1 cap PO DAILY 05/18/17 03/06/19 [Probiotic] Previous Rx's Medication Instructions Recorded Estrogens, Conjugated Cream 1 g VAGINAL DIRECTED #1 tube 03/06/19 [Premarin Cream] HYDROcodone/APAP 5-325MG [[place] 1 tab PO Q6HR PRN 3 Days #12 tab 10/11/19 5-325] Ketorolac [Toradol] 10 mg PO Q6HR #12 tab 10/11/19 Ondansetron Odt [Zofran Odt] 4 mg PO Q8HR PRN #12 tab 10/11/19 Tamsulosin HCl [Flomax] 0.4 mg PO DAILY #7 capsule 10/11/19 Allergies Allergy/AdvReac Type Severity Reaction Status Date / Time albuterol Allergy Dyspnea Verified 10/11/19 10:15 cefaclor [From Ceclor] Allergy Rash/Hives Verified 10/11/19 10:15 cephalexin [From Keflex] Allergy Rash/Hives Verified 10/11/19 10:15 cetirizine [From Zyrtec] Allergy Unknown Verified 10/11/19 10:15 clarithromycin [From Biaxin] Allergy Rash/Hives Verified 10/11/19 10:15 doxycycline Allergy Rash/Hives Verified 10/11/19 10:15 hydroxyzine [From Atarax] Allergy Rash/Hives Verified 10/11/19 10:15 Iodinated Contrast Media Allergy Rash/Hives Verified 10/11/19 10:15 [Iodinated Contrast- Oral and IV Dye] metronidazole Allergy Unknown Verified 10/11/19 10:15 Penicillins Allergy Rash/Hives Verified 10/11/19 10:15 Sulfa (Sulfonamide Allergy Rash/Hives Verified 10/11/19 10:15 Antibiotics) Tetracyclines Allergy Rash/Hives Verified 10/11/19 10:15 levofloxacin [From Levaquin] AdvReac Unknown Verified 10/11/19 10:15 Review of Systems ROS Statement: Those systems with pertinent positive or pertinent negative responses have been documented in the HPI. ROS Other: All systems not noted in ROS Statement are negative. 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 History of Any Multi-Drug Resistant Organisms: None Reported Past Surgical History: Hysterectomy Additional Past Surgical History / Comment(s): DELLA in 2005. COLONOSCOPY 2018. Past Anesthesia/Blood Transfusion Reactions: No Reported Reaction Past Psychological History: No Psychological Hx Reported Smoking Status: Current every day smoker Past Alcohol Use History: None Reported Past Drug Use History: None Reported - Past Family History Father Family Medical History: Myocardial Infarction ([place]) Brother(s) Family Medical History: Myocardial Infarction ([place]) Additional Family Medical History / Comment(s): She has several aunts who had breast cancer. General Exam - General Exam Comments Initial Comments: 54-year-old female. Alert and oriented 3. Mild to moderate discomfort. Limitations: no limitations General appearance: alert, in no apparent distress Head exam: Present: atraumatic, normocephalic, normal inspection Eye exam: Present: normal appearance, PERRL, EOMI. Absent: scleral icterus, conjunctival injection, periorbital swelling ENT exam: Present: normal exam, mucous membranes moist Neck exam: Present: normal inspection. Absent: tenderness, meningismus, lymphadenopathy Respiratory exam: Present: normal lung sounds bilaterally. Absent: respiratory distress, wheezes, rales, rhonchi, stridor Cardiovascular Exam: Present: regular rate, normal rhythm, normal heart sounds. Absent: systolic murmur, diastolic murmur, rubs, gallop, clicks GI/Abdominal exam: Present: soft, normal bowel sounds, other (R CVA tenderness). Absent: distended, tenderness, guarding, rebound, rigid Extremities exam: Present: normal inspection, full ROM, normal capillary refill. Absent: tenderness, pedal edema, joint swelling, calf tenderness Back exam: Present: normal inspection Neurological exam: Present: alert, oriented X3, CN II-XII intact Psychiatric exam: Present: normal affect, normal mood Skin exam: Present: warm, dry, intact, normal color. Absent: rash Course Vital Signs 10/11/19 10:11 Temperature 97.6 F Pulse Rate 91 Respiratory 18 Rate Blood Pressure 133/75 O2 Sat by Pulse 97 Oximetry Medical Decision Making - Medical Decision Making 30-year-old female presents for persistent right-sided flank pain. Symptoms started 2 days ago. That's the Patient had some hematuria. Clinical presentation is concerning for kidney stone is a radiates towards her groin. At this time lab work was reviewed and unremarkable. Was given Toradol and morphine does have improvement of her symptoms. She is also given Flomax. Review patient's computed tomography scan from 2 days ago which showed no acute process. Urinalysis shows no infection today. Patient's ultrasound was complet ed. His bladder with no significant hydronephrosis repair normal. I did discuss base of symptoms and seems to still be related to possibly kidney stone. Patient can be discharged at this time with a short course of pain medication and anti-inflammatory medicine. Discussed return parameters. Given advice to follow-up with PCP and urology. - Lab Data Result diagrams: 10/11/19 10:56 10/11/19 10:56 Lab Results 10/11/19 10/11/19 10/11/19 Range/Units 10:24 10:56 10:56 WBC 8.0 (3.8-10.6) k/uL RBC 4.64 (3.80-5.40) m/uL Hgb 14.2 (11.4-16.0) gm/dL Hct 42.3 (34.0-46.0) % MCV 91.2 (80.0-100.0) fL MCH 30.5 (25.0-35.0) pg MCHC 33.5 (31.0-37.0) g/dL RDW 12.9 (11.5-15.5) % Plt Count 257 (150-450) k/uL Neutrophils % 55 % Lymphocytes % 35 % Monocytes % 5 % Eosinophils % 1 % Basophils % 0 % Neutrophils # 4.4 (1.3-7.7) k/uL Lymphocytes # 2.8 (1.0-4.8) k/uL Monocytes # 0.4 (0-1.0) k/uL Eosinophils # 0.1 (0-0.7) k/uL Basophils # 0.0 (0-0.2) k/uL Sodium 138 (137-145) mmol/L Potassium 4.0 (3.5-5.1) mmol/L Chloride 105 (98-107) mmol/L Carbon Dioxide 25 (22-30) mmol/L Anion Gap 8 mmol/L BUN 16 (7-17) mg/dL Creatinine 0.85 (0.52-1.04) mg/dL Est GFR (CKD-EPI)AfAm >90 (>60 ml/min/1.73 sqM) Est GFR (CKD-EPI)NonAf 79 (>60 ml/min/1.73 sqM) Glucose 107 H (74-99) mg/dL Calcium 9.7 (8.4-10.2) mg/dL Total Bilirubin 0.6 (0.2-1.3) mg/dL AST 26 (14-36) U/L ALT 16 (4-34) U/L Alkaline Phosphatase 79 (38-126) U/L Total Protein 7.0 (6.3-8.2) g/dL Albumin 4.4 (3.5-5.0) g/dL Amylase 32 (30-110) U/L Lipase 72 (23-300) U/L Urine Color Yellow Urine Appearance Cloudy H (Clear) Urine pH 5.5 (5.0-8.0) Ur Specific [place] 1.025 (1.001-1.035) Urine Protein Negative (Negative) Urine Glucose (UA) Negative (Negative) Urine Ketones Negative (Negative) Urine Blood Trace H (Negative) Urine Nitrite Negative (Negative) Urine Bilirubin Negative (Negative) Urine Urobilinogen 3.0 (<2.0) mg/dL Ur Leukocyte Esterase Negative (Negative) Urine RBC 3 (0-5) /hpf Urine WBC 3 (0-5) /hpf Ur Squamous Epith Cells 6 H (0-4) /hpf Urine Bacteria Occasional H (None) /hpf Urine Mucus Few H (None) /hpf - Radiology Data Radiology results: report reviewed Ultrasound reveals a bladder negative for any acute process. KUB shows normal bowel gas pattern. Disposition Clinical Impression: Flank pain, Hematuria Disposition: HOME SELF-CARE Condition: Good Instructions (If sedation given, give patient instructions): Flank Pain (ED) Additional Instructions: Patient advised to take medications at home as prescribed. Following up with her PCP on Monday. Encourage fluid intake. Return to the ED if any alarming signs or symptoms occur. Prescriptions: Tamsulosin HCl [Flomax] 0.4 mg PO DAILY #7 capsule HYDROcodone/APAP 5-325MG [[place] 5-325] 1 tab PO Q6HR PRN 3 Days #12 tab PRN Reason: Pain Ketorolac [Toradol] 10 mg PO Q6HR #12 tab Ondansetron Odt [Zofran Odt] 4 mg PO Q8HR PRN #12 tab PRN Reason: Nausea Is patient prescribed a controlled substance at d/c from ED?: Yes If prescribed controlled substance>3 days was MAPS reviewed?: Prescribed <3 Days If opioid is for acute pain is fill amount 7 days or less?: Yes If Rx opioid, was Start Talking consent form obtained?: Yes Referrals: Rome Briones MD [Primary Care Provider] - 1-2 days Jonh Tejada MD [STAFF PHYSICIAN] - 1-2 days Time of Disposition: 13:45
[2019-10-11 10:56] LABS: Appearance,Urine Cloudy (Clear); Bacteria,Urine Occasional /hpf; Bilirubin,Urine Negative (Negative); Blood,Urine Trace (Negative); Color,Urine Yellow; Glucose,Urine (UA) Negative (Negative); Ketones,Urine Negative (Negative); Leukocyte Esterase,Urine Negative (Negative); Mucus,Urine Few /hpf; Nitrite,Urine Negative (Negative); PH, Urine 5.5 (5.0-8.0); Protein,Urine Negative (Negative); RBC,Urine 3 /hpf (0-5); Specific Gravity,Urine 1.025 (1.001-1.035); Squamous Epithelial Cell,Urine 6 /hpf (0-4); WBC,Urine 3 /hpf (0-5)
--- NOTE | 2019-10-11 11:30 | XR ---
KUB HISTORY: Abdominal pain, posterior flank pain, history of gross hematuria Frontal KUB submitted on 2 images And correlation to prior exam 10/20/2011, CT dated 10/09/2019 There is a spinal curvature. Lung bases are clear. There is no evident bowel obstruction or pneumoper itoneum. No pathologic calcification evident, multiple calcifications in the pelvis felt likely to re present phleboliths. IMPRESSION: Spinal curvature could be positional. No acute abnormality evident.
[2019-10-11 11:33] LABS: ALT 16 U/L (4-34); AST 26 U/L (14-36); African American GFR (CKD) >90 (>60 ml/min/1.73 sqM); Albumin 4.4 g/dL (3.5-5.0); Alkaline Phosphatase 79 U/L (38-126); Amylase 32 U/L (30-110); Anion Gap 8 mmol/L; Blood Urea Nitrogen 16 mg/dL (7-17); Calcium 9.7 mg/dL (8.4-10.2); Carbon Dioxide 25 mmol/L (22-30); Chloride 105 mmol/L (98-107); Glucose 107 mg/dL (74-99); Non-African American GFR(CKD) 79 (>60 ml/min/1.73 sqM); Sodium 138 mmol/L (137-145); Total Bilirubin 0.6 mg/dL (0.2-1.3)
[2019-10-11 11:41] LABS: Basophils % (A) 0 %; Eosinophils # (A) 0.1 k/uL (0-0.7); Eosinophils % (A) 1 %; HCT 42.3 % (34.0-46.0); HGB 14.2 gm/dL (11.4-16.0); Lymphocytes # (A) 2.8 k/uL (1.0-4.8); Lymphocytes % (A) 35 %; MCH 30.5 pg (25.0-35.0); MCHC 33.5 g/dL (31.0-37.0); MCV 91.2 fL (80.0-100.0); Mean Platelet Volume 6.8; Monocytes # (A) 0.4 k/uL (0-1.0); Monocytes % (A) 5 %; Neutrophils # (A) 4.4 k/uL (1.3-7.7); Neutrophils % (A) 55 %; Platelet Count 257 k/uL (150-450); RBC 4.64 m/uL (3.80-5.40); RDW 12.9 % (11.5-15.5)
--- NOTE | 2019-10-11 13:02 | US ---
EXAMINATION TYPE: US renals and bladder DATE OF EXAM: 10/11/2019 COMPARISON: CT 2019 CLINICAL HISTORY: flank pain. Back pain x 4 days EXAM MEASUREMENTS: Right Kidney: 9.3 x 4.2 x 4.4 cm Left Kidney: 10.1 x 4.8 x 4.7 cm Right Kidney: no hydronephrosis or masses seen Left Kidney: no hydronephrosis or masses seen Bladder: not distended IMPRESSION: 1. Normal renal ultrasound
[2019-10-11] MEDS ORDERED: MORPHINE SULFATE 4 MG/ML SYRINGE IVP STA (13:43)
[2019-10-11 14:05] VITALS: BP 114/69; PULSE 63; RESP 20; TEMP 98.6
== END 2019-10-11 14:27 | disposition home or self-care (01) ==
LOC: EC 10:03
DX: R10.9 Unspecified abdominal pain (principal); R31.9 Hematuria, unspecified; F17.200 Nicotine dependence, unspecified, uncomplicated; Z88.0 Allergy status to penicillin; Z88.1 Allergy status to other antibiotic agents; Z88.2 Allergy status to sulfonamides; Z88.8 Allergy status to other drugs, medicaments and biological substances; Z91.041 Radiographic dye allergy status
CPT/HCPCS: 36415; 80053; 82150; 83690; 85025; 81001; 74018; 76770; 99285; 96374; 96375; 96376; 96361; J2270 ×2; J1885

== ENCOUNTER → 2020-04-01 | Outpatient (CLI) | payer OTHER ==
[2020-04-01 08:01] VITALS: BP 117/67; PULSE 86; RESP 16; TEMP 98.2
--- NOTE | 2020-04-01 08:53 | P.HPOB ---
History of Present Illness H&P Date: 04/01/20 Chief Complaint: The patient is here for her routine gynecologic exam. This is a 54-year-old with an LMP of 2006. The patient is status post DELLA for benign reasons. She is complaining of vulvar burning and irritation. She states she used [id number] cortisone 10 for 3 days and does feel slightly better but not completely improved. She recently also noticed a slight vaginal odor and slight itching with moderate to severe burning. She did not use the Premarin vaginal cream last year that was prescribed. She states it feels dry all of the time. She has not been sexually active because of her 's health issues. She has experienced hot flashes during the past 2-1/2 years and these seem to be improving. Review of Systems The patient has lost 12 pounds over the last year. She denies respiratory, cardiac, or G.I. problems. Past Medical History Past Medical History: Skin Disorder Additional Past Medical History / Comment(s): [place]. 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 History of Any Multi-Drug Resistant Organisms: None Reported Past Surgical History: Hysterectomy Additional Past Surgical History / Comment(s): DELLA in 2005. COLONOSCOPY 2018(next after 10yr). Past Anesthesia/Blood Transfusion Reactions: No Reported Reaction Past Psychological History: No Psychological Hx Reported Smoking Status: Current every day smoker (5 cigarettes per day but is planning to quit within the next month.) Past Alcohol Use History: None Reported Additional Past Alcohol Use History / Comment(s): SMOKED 1/2 PPD, 20 YEARS Past Drug Use History: None Reported Additional History: She has been since 2019 and this is her second marriage. She has not been sexually active because of her 's prostate t reatment. 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 - Past Family History Father Family Medical History: Myocardial Infarction ([place]) Brother(s) Family Medical History: Myocardial Infarction ([place]) Additional Family Medical History / Comment(s): She has several aunts who had breast cancer. Medications and Allergies Home Medications Medication Instructions Recorded Confirmed Type L.acidoph,Paracasei, B.lactis 1 cap PO DAILY 05/18/17 03/06/19 History [Probiotic] Allergies Allergy/AdvReac Type Severity Reaction Status Date / Time albuterol Allergy Dyspnea Verified 07/29/20 07:54 cefaclor [From Ceclor] Allergy Rash/Hives Verified 04/01/20 07:54 cephalexin [From Keflex] Allergy Rash/Hives Verified 04/01/20 07:54 cetirizine [From Zyrtec] Allergy Unknown Verified 04/01/20 07:54 clarithromycin [From Biaxin] Allergy Rash/Hives Verified 04/01/20 07:54 doxycycline Allergy Rash/Hives Verified 04/01/20 07:54 hydroxyzine [From Atarax] Allergy Rash/Hives Verified 04/01/20 07:54 Iodinated Contrast Media Allergy Rash/Hives Verified 04/01/20 07:54 [Iodinated Contrast- Oral and IV Dye] metronidazole Allergy Unknown Verified 04/01/20 07:54 Penicillins Allergy Rash/Hives Verified 04/01/20 07:54 Sulfa (Sulfonamide Allergy Rash/Hives Verified 04/01/20 07:54 Antibiotics) Tetracyclines Allergy Rash/Hives Verified 04/01/20 07:54 levofloxacin [From Levaquin] AdvReac Unknown Verified 04/01/20 07:54 Exam Vital Signs Temp Pulse Resp BP Pulse Ox 04/01/20 07:55 98.2 F 86 16 117/67 97 Intake and Output 03/31/20 04/01/20 04/01/20 22:59 06:59 14:59 Other: Weight 88.904 kg Height 5 feet 6 inches, weight 196 pounds, BMI 31.6. This is a well-developed well-nourished white female who is alert and oriented times 3 in no acute distress. HEENT: Within normal limits. NECK: Supple without mass or thyromegaly. CHEST AND LUNGS: Clear to auscultation. HEART: Regular rate and rhythm. BREASTS: Are without mass or discharge. AXILLARY EXAM: Negative for adenopathy. BACK: Negative for CVA tenderness. ABDOMEN: Soft, nontender, without palpable masses. PELVIC EXAM: External genitalia reveals generalized mild erythema with no focal lesions and mild atrophy. Vagina appears normal with minimal atrophy. There is no evidence of prolapse. Bimanual examination is negative for mass or tenderness. There is no unusual discharge. RECTAL EXAM: Rectovaginal exam is negative for mass or tenderness and is negative for occult blood. EXTREMITIES: Nontender. IMPRESSION: 1. 54-year-old menopausal female status post DELLA for benign reasons with vulvar inflammation and burning. Differential diagnosis will include nonspecific dermatitis, Romelia vaginitis, bacterial vaginosis, and contact dermatitis. 2. The patient is trying to quit smoking. PLAN: 1. Pap smears have been discontinued. 2. Self breast awareness was discussed with the patient. 3. Screening mammogram is scheduled for 05/28/2020. The order slip was given to the patient for this. 4. Affirm testing for romelia, Gardnerella and Trichomonas was obtained from the vagina. 5. Kenalog 0.1% cream 3 times a day when necessary for vulvar burning or pruritus. After she has used this she will use Premarin vaginal cream 1 g intravaginally 2 times weekly for the vaginal dryness. These prescriptions will be sent electronically to [facility] pharmacy on . She was advised to return in one year for her annual well woman exam. She will also make an appointment for reevaluation if her symptoms are not improving.
[2020-04-02 06:21] LABS: Gardnerella Negative (Negative); Source Vagina; Trichomonas Negative (Negative)
--- NOTE | 2020-04-03 10:35 | P.PN ---
Progress Note - Text Progress Note Date: 04/03/20 Affirm testing for Romelia, Garderella, and Trichomonas was negative. The patient was notified by phone. She started using the Kenalog cream and says it is helping a lot. After one week, she can wean off of the Kenalog and use the estrogen vaginal cream as directed. She is to avoid overwashing, scratching and rubbing. Call if symptoms are worsening or not improving. She will return in one year or as needed.
== END | disposition home or self-care (01) ==
LOC: WWCWWP 07:42
PROVIDERS: ATTEND Obstetrics & Gynecology
DX: N76.2 Acute vulvitis (principal)
CPT/HCPCS: 87480; 87510; 87660

== ENCOUNTER → 2020-05-28 | Outpatient (CLI) | payer OTHER ==
--- NOTE | 2020-05-29 14:06 | MM ---
Reason for exam: screening (asymptomatic). Last mammogram was performed 1 year and 3 months ago. History: Patient is postmenopausal. Family history of breast cancer in maternal aunt at age 60 and breast cancer in maternal aunt at age 55. Physical Findings: A clinical breast exam by your physician is recommended on an annual basis and results should be correlated with mammographic findings. MG 3D Screening Mammo W/Cad Bilateral CC and MLO view(s) were taken. Prior study comparison: March 06, 2019, bilateral MG 3d screening mammo w/cad. November 15, 2017, bilateral MG 3d screening mammo w/cad. The breast tissue is heterogeneously dense. This may lower the sensitivity of mammography. No significant changes when compared with prior studies. ASSESSMENT: Benign, BI-RAD 2 RECOMMENDATION: Routine screening mammogram of both breasts in 1 year.
== END | disposition home or self-care (01) ==
LOC: RADMAMWWP 08:01
PROVIDERS: ATTEND Obstetrics & Gynecology
DX: Z12.31 Encounter for screening mammogram for malignant neoplasm of breast (principal)
CPT/HCPCS: 77063; 77067

== ENCOUNTER 2021-07-06 15:33 | Inpatient (IN) | payer OTHER ==
[2021-07-06] MEDS ORDERED: ASPIRIN 81 MG PO STA (16:21)
[2021-07-06] MEDS ORDERED: NITROGLYCERIN OINT 1 INCH/GM PACKET TOPICAL STA (16:21)
--- NOTE | 2021-07-06 16:33 | ED ---
General Adult HPI - General Chief complaint: Chest Pain Stated complaint: chest pain Time Seen by Provider: 07/06/21 15:45 Source: patient, family, RN notes reviewed, old records reviewed Mode of arrival: ambulatory Limitations: no limitations - History of Present Illness Initial comments: This a 56-year-old female presents emergency Department with a past medical history significant for smoking. Patient states she also has a very strong family history of heart disease with a brother who was 48 with his first heart attack. Patient states over the last 4 days she's been having some intermittent chest pain typically lasts between 30 and 40 minutes. She states she also has some shortness of breath and nausea. Patient states this morning it scared her because she had some abnormal feeling in the right jaw on the right arm. Patient went to see her primary medical care doctor EKG showed some ST segment depression so they sent her to the emergency department. Patient currently is chest pain-free. Patient denies any recent fever chills or cough per patient states she did get the COVID vaccine. Patient denies any lightheadedness or dizziness. Patient denies headache. Patient denies any swelling to the legs or calf tenderness. Patient also is complaining of some upper right back pain which is been ongoing for a while and it does feel better when her massages that area. Patient also states she believes she started having pain there when she unusual physical unlabored. - Related Data Home Medications Medication Instructions Recorded Confirmed No Known Home Medications 07/06/21 07/06/21 Allergies Allergy/AdvReac Type Severity Reaction Status Date / Time albuterol Allergy Dyspnea Verified 07/06/21 17:04 cefaclor [From Ceclor] Allergy Rash/Hives Verified 07/06/21 17:04 cephalexin [From Keflex] Allergy Rash/Hives Verified 07/06/21 17:04 cetirizine [From Zyrtec] Allergy Unknown Verified 07/06/21 17:04 clarithromycin [From Biaxin] Allergy Rash/Hives Verified 07/06/21 17:04 doxycycline Allergy Rash/Hives Verified 07/06/21 17:04 hydroxyzine [From Atarax] Allergy Rash/Hives Verified 07/06/21 17:04 Iodinated Contrast Media Allergy Rash/Hives Verified 07/06/21 17:04 [Iodinated Contrast- Oral and IV Dye] metronidazole Allergy Unknown Verified 07/06/21 17:04 Penicillins Allergy Rash/Hives Verified 07/06/21 17:04 Sulfa (Sulfonamide Allergy Rash/Hives Verified 07/06/21 17:04 Antibiotics) Tetracyclines Allergy Rash/Hives Verified 07/06/21 17:04 levofloxacin [From Levaquin] AdvReac Unknown Verified 07/06/21 17:04 Review of Systems ROS Statement: Those systems with pertinent positive or pertinent negative responses have been documented in the HPI. ROS Other: All systems not noted in ROS Statement are negative. Past Medical History Past Medical History: Skin Disorder Additional Past Medical History / Comment(s): TAR[place]. 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 History of Any Multi-Drug Resistant Organisms: None Reported Past Surgical History: Hysterectomy Additional Past Surgical History / Comment(s): DELLA in 2005. COLONOSCOPY 2018(next after 10yr). Past Anesthesia/Blood Transfusion Reactions: No Reported Reaction Past Psychological History: No Psychological Hx Reported Smoking Status: Current every day smoker Past Alcohol Use History: None Reported Past Drug Use History: None Reported - Past Family History Father Family Medical History: Myocardial Infarction ([place]) Brother(s) Family Medical History: Myocardial Infarction ([place]) Additional Family Medical History / Comment(s): She has several aunts who had breast cancer. General Exam - General Exam Comments Initial Comments: GENERAL: Patient is well-developed and well-nourished. Patient is nontoxic and well- hydrated and is in mild distress. ENT: Neck is soft and supple. No significant lymphadenopathy is noted. Oropharynx is clear. Moist mucous membranes. Neck has full range of motion without eliciting any pain. EYES: The sclera were anicteric and conjunctiva were pink and moist. Extraocular movements were intact and pupils were equal round and reactive to light. Eyelids were unremarkable. PULMONARY: Unlabored respirations. Good breath sounds bilaterally. No audible rales rhonchi or wheezing was noted. CARDIOVASCULAR: There is a regular rate and rhythm without any murmurs gallops or rubs. ABDOMEN: Soft and nontender with normal bowel sounds. SKIN: Skin is clear with no lesions or rashes and otherwise unremarkable. NEUROLOGIC: Patient is alert and oriented x3. Cranial nerves II through XII are grossly intact. Motor and sensory are also intact. Normal speech, volume and content. Symmetrical smile. MUSCULOSKELETAL: Normal extremities with adequate strength and full range of motion. LYMPHATICS: No significant lymphadenopathy is noted PSYCHIATRIC: Normal psychiatric evaluation. Limitations: no limitations Course Vital Signs 07/06/21 07/06/21 15:44 18:57 Temperature 99.1 F Pulse Rate 113 H 81 Respiratory 20 18 Rate Blood Pressure 153/80 141/86 O2 Sat by Pulse 96 99 Oximetry Medical Decision Making - Medical Decision Making EKG shows sinus tachycardia at 109 bpm MO interval is 124 QRS is 78 QT interval 340 QTC is 457. Patient's EKG shows some ST segment depression inferiorly as well as precordial leads V3 through V5. Patient's CT of the chest showed no PE. Patient has unstable angina started heparin the patient. I spoke with [facility] hospitalist agreed to admit the patient admitted the patient I wrote admitting orders. I continued heparin and aspirin Nitropaste on the floor. I consulted cardiology - Lab Data Result diagrams: 07/06/21 17:01 07/06/21 17:01 Lab Results 07/06/21 07/06/21 07/06/21 Range/Units 17:01 17:01 17:01 WBC 11.8 H (3.8-10.6) k/uL RBC 5.09 (3.80-5.40) m/uL Hgb 15.6 (11.4-16.0) gm/dL Hct 47.1 H (34.0-46.0) % MCV 92.6 (80.0-100.0) fL MCH 30.7 (25.0-35.0) pg MCHC 33.2 (31.0-37.0) g/dL RDW 12.8 (11.5-15.5) % Plt Count 266 (150-450) k/uL MPV 6.6 Neutrophils % 68 % Lymphocytes % 23 % Monocytes % 4 % Eosinophils % 1 % Basophils % 1 % Neutrophils # 8.0 H (1.3-7.7) k/uL Lymphocytes # 2.7 (1.0-4.8) k/uL Monocytes # 0.5 (0-1.0) k/uL Eosinophils # 0.1 (0-0.7) k/uL Basophils # 0.1 (0-0.2) k/uL PT 10.2 (9.0-12.0) sec INR 0.9 (<1.2) APTT 27.4 (22.0-30.0) sec D-Dimer 1.73 H (<0.60) mg/L FEU Sodium 137 (137-145) mmol/L Potassium 3.9 (3.5-5.1) mmol/L Chloride 101 (98-107) mmol/L Carbon Dioxide 25 (22-30) mmol/L Anion Gap 11 mmol/L BUN 19 H (7-17) mg/dL Creatinine 0.84 (0.52-1.04) mg/dL Est GFR (CKD-EPI)AfAm >90 (>60 ml/min/1.73 sqM) Est GFR (CKD-EPI)NonAf 79 (>60 ml/min/1.73 sqM) Glucose 108 H (74-99) mg/dL Calcium 10.1 (8.4-10.2) mg/dL Magnesium 2.1 (1.6-2.3) mg/dL Total Bilirubin 0.5 (0.2-1.3) mg/dL AST 26 (14-36) U/L ALT 24 (4-34) U/L Alkaline Phosphatase 97 (38-126) U/L Troponin I (0.000-0.034) ng/mL Total Protein 8.1 (6.3-8.2) g/dL Albumin 5.0 (3.5-5.0) g/dL Coronavirus (PCR) (Not Detectd) 07/06/21 07/06/21 Range/Units 17:01 17:01 WBC (3.8-10.6) k/uL RBC (3.80-5.40) m/uL Hgb (11.4-16.0) gm/dL Hct (34.0-46.0) % MCV (80.0-100.0) fL MCH (25.0-35.0) pg MCHC (31.0-37.0) g/dL RDW (11.5-15.5) % Plt Count (150-450) k/uL MPV Neutrophils % % Lymphocytes % % Monocytes % % Eosinophils % % Basophils % % Neutrophils # (1.3-7.7) k/uL Lymphocytes # (1.0-4.8) k/uL Monocytes # (0-1.0) k/uL Eosinophils # (0-0.7) k/uL Basophils # (0-0.2) k/uL PT (9.0-12.0) sec INR (<1.2) APTT (22.0-30.0) sec D-Dimer (<0.60) mg/L FEU Sodium (137-145) mmol/L Potassium (3.5-5.1) mmol/L Chloride (98-107) mmol/L Carbon Dioxide (22-30) mmol/L Anion Gap mmol/L BUN (7-17) mg/dL Creatinine (0.52-1.04) mg/dL Est GFR (CKD-EPI)AfAm (>60 ml/min/1.73 sqM) Est GFR (CKD-EPI)NonAf (>60 ml/min/1.73 sqM) Glucose (74-99) mg/dL Calcium (8.4-10.2) mg/dL Magnesium (1.6-2.3) mg/dL Total Bilirubin (0.2-1.3) mg/dL AST (14-36) U/L ALT (4-34) U/L Alkaline Phosphatase (38-126) U/L Troponin I <0.012 (0.000-0.034) ng/mL Total Protein (6.3-8.2) g/dL Albumin (3.5-5.0) g/dL Coronavirus (PCR) Not Detected (Not Detectd) Critical Care Time Critical Care Time: Yes Total Critical Care Time: 35 Disposition Clinical Impression: Unstable angina pectoris Disposition: ADMITTED IP TO THIS HOSP Referrals: Tulio Constantino MD [Primary Care Provider] - 1-2 days Time of Disposition: 20:31
[2021-07-06 17:09] LABS: Basophils # (A) 0.1 k/uL (0-0.2); Basophils % (A) 1 %; Eosinophils # (A) 0.1 k/uL (0-0.7); Eosinophils % (A) 1 %; HCT 47.1 % (34.0-46.0); HGB 15.6 gm/dL (11.4-16.0); Lymphocytes # (A) 2.7 k/uL (1.0-4.8); Lymphocytes % (A) 23 %; MCH 30.7 pg (25.0-35.0); MCHC 33.2 g/dL (31.0-37.0); MCV 92.6 fL (80.0-100.0); Mean Platelet Volume 6.6; Monocytes # (A) 0.5 k/uL (0-1.0); Monocytes % (A) 4 %; Neutrophils % (A) 68 %; Platelet Count 266 k/uL (150-450); RBC 5.09 m/uL (3.80-5.40); RDW 12.8 % (11.5-15.5); WBC 11.8 k/uL (3.8-10.6)
[2021-07-06 17:22] LABS: ALT 24 U/L (4-34); AST 26 U/L (14-36); African American GFR (CKD) >90 (>60 ml/min/1.73 sqM); Alkaline Phosphatase 97 U/L (38-126); Anion Gap 11 mmol/L; Blood Urea Nitrogen 19 mg/dL (7-17); Calcium 10.1 mg/dL (8.4-10.2); Carbon Dioxide 25 mmol/L (22-30); Chloride 101 mmol/L (98-107); Glucose 108 mg/dL (74-99); Magnesium 2.1 mg/dL (1.6-2.3); Non-African American GFR(CKD) 79 (>60 ml/min/1.73 sqM); Potassium 3.9 mmol/L (3.5-5.1); Sodium 137 mmol/L (137-145); Total Bilirubin 0.5 mg/dL (0.2-1.3); Total Protein 8.1 g/dL (6.3-8.2)
[2021-07-06 17:23] LABS: INR 0.9 (<1.2); Partial Thromboplastin Time 27.4 sec (22.0-30.0); Prothrombin Time 10.2 sec (9.0-12.0)
--- NOTE | 2021-07-06 17:58 | XR ---
EXAMINATION TYPE: XR chest 2V DATE OF EXAM: 07/06/2021 COMPARISON: 11/05/2010 INDICATION: Chest pain TECHNIQUE: Frontal and lateral views of the chest are obtained. FINDINGS: The heart size is normal. The pulmonary vasculature is normal. The lungs are clear. IMPRESSION: 1. No acute pulmonary process.
[2021-07-06] MEDS ORDERED: methylPREDNISolone SOD SUCCI 125 MG/2 ML VIAL IV STA (18:23)
[2021-07-06] MEDS ORDERED: diphenhydrAMINE 50 MG/ML 1 ML VIAL IVP STA (18:23)
[2021-07-06] MEDS ORDERED: FAMOTIDINE 20 MG/2 ML VIAL IV STA (18:23)
--- NOTE | 2021-07-06 19:52 | CT ---
CT CHEST FOR PULMONARY EMBOLISM. EXAMINATION TYPE: CT chest angio for PE DATE OF EXAM: 07/06/2021 INDICATION: Chest pain CT DLP: 473.8 mGycm, Automated exposure control for dose reduction was used. CONTRAST: Patient injected with 100 mL of Isovue 370. COMPARISON: None TECHNIQUE: CT of the chest is performed on a spiral scan at 2 mm thick sections. Study is performed with intravenous contrast timed for evaluation for pulmonary embolism. This will limit additional po rtions of the evaluation. 3-D MIP images reconstructed by the technologist are reviewed on the compu ter in the coronal and sagittal planes. FINDINGS: No persistent filling defects are evident to suggest an acute pulmonary embolism. No mediastinal or hilar adenopathy enlarged by CT criteria is evident. The ascending aorta diameter at the level of the main pulmonary artery is 3.0 cm. The main pulmonary artery diameter at the bifur cation is 2.6 cm. Lung windows are clear. Limited CT section through the upper abdomen are unremarkable. IMPRESSIONS: 1. No acute pulmonary embolism.
[2021-07-06] MEDS ORDERED: HEPARIN SODIUM 1,000 UN/ML (10ML VL) IV ONE (20:20)
[2021-07-06] MEDS ORDERED: HEPARIN SOD,PORK IN 0.45% NACL 25,000 UNIT in 0.45% NACL 1 250ML.BAG IV SCH (20:30)
[2021-07-06] MEDS ORDERED: NITROGLYCERIN SL TABS 0.4 MG TAB SUBLINGUAL PRN (20:31)
[2021-07-07] MEDS: NITROGLYCERIN OINT 1 INCH/GM PACKET TOPICAL SCH ×3 (02:00→12:02)
[2021-07-07] MEDS ORDERED: ACETAMINOPHEN TAB 325 MG TAB PO PRN ×2 (02:01→10:32)
[2021-07-07] MEDS ORDERED: HEPARIN SODIUM 1,000 UN/ML (10ML VL) IV PRN (04:45)
[2021-07-07] MEDS ORDERED: ASPIRIN 325 MG TAB PO SCH (09:00)
[2021-07-07] MEDS ORDERED: ASPIRIN 81 MG PO SCH (09:00)
--- NOTE | 2021-07-07 09:15 | US ---
EXAMINATION TYPE: US gallbladder DATE OF EXAM: 07/07/2021 COMPARISON: NONE CLINICAL HISTORY: 56-year-old female RUQ pain. Chest pain TECHNIQUE: Multiple sonographic images of the right upper quadrant are obtained. FINDINGS: EXAM MEASUREMENTS: Liver Length: 18.4 cm Gallbladder Wall: 0.2 cm CBD: 0.3 cm Right Kidney: 10.1 x 4.1 x 4.6 cm Pancreas: The head and tail aren't secured by bowel gas shadowing. Visualized body shows no gross ab normality. Liver: Mildly enlarged but with relatively homogeneous appearance. No focal lesion seen. Gallbladder: wnl Evidence for sonographic Lyn's sign: No CBD: wnl Right Kidney: No hydronephrosis. Block Cutter notes:No abnormality visualized to account for pt's symptoms IMPRESSION: 1. There is mild hepatomegaly at 18.4 cm. 2. No gallstones or biliary ductal dilatation.
--- NOTE | 2021-07-07 10:34 | P.HPIM ---
History of Present Illness H&P Date: 07/07/21 HISTORY OF PRESENT ILLNESS This is a 56-year-old female patient of Dr. Constantino with past medical history of tobacco use and dependence. Patient presented to the hospital due to chest pain has been going on for the past 4 days intermittently lasting about 30-40 minutes, shortness of breath and nausea. Yesterday she had pain in her right jaw and right arm. She went to her PCP and EKG showed ST segment depressions in the center and to the hospital. She has been afebrile, heart rate in the 80s, blood pressure 153/80, pulse ox 96% on room air. WBC 11.8. D-dimer 1.73. BUN 19 and creatinine 0.84. Blood sugar 108. Troponin negative on 3 draws. Coronavirus PCR not detected. Chest x-ray reveals no acute pulmonary process. CTA of the chest reveals no acute pulmonary embolism. REVIEW OF SYSTEMS Constitutional: No fever, no chills, no night sweats. No weight change. No weakness, fatigue or lethargy. No daytime sleepiness. EENT: No headache. No blurred vision or double vision, no loss of vision. No loss of Hearing, no ringing in the ears, no dizziness. No nasal drainage or congestion. No epistaxis. No sore throat. Lungs: No shortness of breath, cough, no sputum production. No wheezing. Cardiovascular: No chest pain, no lower extremity edema. No palpitations. No paroxysmal nocturnal dyspnea. No orthopnea. No lightheadedness or dizziness. No syncopal episodes. Abdominal: No abdominal pain. No nausea, vomiting. No diarrhea. No constipation. No bloody or tarry stools. No loss of appetite. Genitourinary: No dysuria, increased frequency, urgency. No urinary retention. Musculoskeletal: No myalgias. No muscle weakness, no gait dysfunction, no frequent falls. No back pain. No neck pain. Integumentary: No wounds, no lesions. No rash or pruritus. No unusual bruising. No change in hair or nails. Neurologic: No aphasia. No facial droop. No change in mentation. No head injury. No headache. No paralysis. No paresthesia. Psychiatric: No depression. No anxiety. No mood swings. Endocrine: No abnormal blood sugars. No weight change. No excessive sweating or thirst. No cold intolerance. PHYSICAL EXAMINATION Gen: This is an obese 56-year-old female. Patient is resting in bed appears to be comfortable and in no acute distress. Patient was started on heparin drip, placed on the observation unit, currently waiting for a bed and cardiology consult requested. Echocardiogram and stress echo ordered. HEENT: Head is atraumatic, normocephalic. Pupils equal, round. Sclerae is anicteric. NECK: Supple. No JVD. No lymphadenopathy. No thyromegaly. LUNGS: Clear to auscultation. No wheezes or rhonchi. No intercostal retractions. HEART: Regular rate and rhythm. No murmur. ABDOMEN: Soft. Bowel sounds are present. No masses. No tenderness. EXTREMITIES: No pedal edema. No calf tenderness. NEUROLOGICAL: Patient is awake, alert and oriented x3. Cranial nerves 2 through 12 are grossly intact. ASSESSMENT AND PLAN 1. Chest pain with negative troponins, Q Gasper syndrome ruled out. Cardiology consult appreciated. 2. Tobacco use and dependence. 3. [ ]. 4. [ ]. Patient is Observation status. DISCHARGE PLAN Home. Greater than 35 minutes was utilized and coordinating patient's discharge. Impression and plan of care have been directed as dictated by the signing physician. Cate Stephenson nurse practitioner acting as scribe for signing physician. 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 History of Any Multi-Drug Resistant Organisms: None Reported Past Surgical History: Hysterectomy Additional Past Surgical History / Comment(s): DELLA in 2005. COLONOSCOPY 2 018(next after 10yr). Past Anesthesia/Blood Transfusion Reactions: No Reported Reaction Past Psychological History: No Psychological Hx Reported Smoking Status: Current every day smoker Past Alcohol Use History: None Reported Additional Past Alcohol Use History / Comment(s): SMOKED 1/2 PPD, 20 YEARS Past Drug Use History: None Reported - Past Family History Father Family Medical History: Myocardial Infarction ([place]) Brother(s) Family Medical History: Myocardial Infarction ([place]) Additional Family Medical History / Comment(s): She has several aunts who had breast cancer. Medications and Allergies Home Medications Medication Instructions Recorded Confirmed Type Omeprazole [PriLOSEC] 40 mg PO -BRKFST #14 cap 07/07/21 Rx Allergies Allergy/AdvReac Type Severity Reaction Status Date / Time albuterol Allergy Dyspnea Verified 07/06/21 17:04 cefaclor [From Ceclor] Allergy Rash/Hives Verified 07/06/21 17:04 cephalexin [From Keflex] Allergy Rash/Hives Verified 07/06/21 17:04 cetirizine [From Zyrtec] Allergy Unknown Verified 07/06/21 17:04 clarithromycin [From Biaxin] Allergy Rash/Hives Verified 07/06/21 17:04 doxycycline Allergy Rash/Hives Verified 07/06/21 17:04 hydroxyzine [From Atarax] Allergy Rash/Hives Verified 07/06/21 17:04 Iodinated Contrast Media Allergy Rash/Hives Verified 07/06/21 17:04 [Iodinated Contrast- Oral and IV Dye] metronidazole Allergy Unknown Verified 07/06/21 17:04 Penicillins Allergy Rash/Hives Verified 07/06/21 17:04 Sulfa (Sulfonamide Allergy Rash/Hives Verified 07/06/21 17:04 Antibiotics) Tetracyclines Allergy Rash/Hives Verified 07/06/21 17:04 levofloxacin [From Levaquin] AdvReac Unknown Verified 07/06/21 17:04 Physical Exam Vitals: Vital Signs Temp Pulse Pulse Resp BP BP Pulse Ox 07/07/21 07:20 74 18 110/61 96 07/07/21 05:13 98.0 F 76 18 126/76 95 07/07/21 04:00 61 18 07/07/21 01:58 75 18 108/60 95 07/07/21 00:00 70 18 97 07/06/21 23:57 71 18 07/06/21 23:11 71 18 07/06/21 22:41 98.6 F 71 18 122/73 96 07/06/21 22:00 75 18 07/06/21 20:23 80 18 120/70 96 07/06/21 18:57 81 18 141/86 99 07/06/21 15:44 99.1 F 113 H 20 153/80 96 Intake and Output 07/06/21 07/07/21 07/07/21 22:59 06:59 14:59 Intake Total 78.874 Balance 78.874 Intake: Intake, IV Titration 78.874 Amount Heparin Sod,Pork in 0.45% 78.874 NaCl 25,000 unit In 0.45 % NaCl 1 250ml.bag @ 12 UNITS/KG/HR 9.798 mls/hr IV .Q24H [facility] Rx#: [id number] Other: Voiding Method Toilet Weight 81.647 kg Results CBC & Chem 7: 07/06/21 17:01 07/06/21 17:01 Labs: Abnormal Lab Results - Last 24 Hours (Table) 07/06/21 07/06/21 07/06/21 Range/Units 17:01 17: 17:01 WBC 11.8 H (3.8-10.6) k/uL Hct 47.1 H (34.0-46.0) % Neutrophils # 8.0 H (1.3-7.7) k/uL APTT (22.0-30.0) sec D-Dimer 1.73 H (<0.60) mg/L FEU BUN 19 H (7-17) mg/dL Glucose 108 H (74-99) mg/dL 07/07/21 Range/Units 03:05 WBC (3.8-10.6) k/uL Hct (34.0-46.0) % Neutrophils # (1.3-7.7) k/uL APTT 41.8 H (22.0-30.0) sec D-Dimer (<0.60) mg/L FEU BUN (7-17) mg/dL Glucose (74-99) mg/dL Thrombosis Risk Factor Assmnt - Choose All That Apply Any of the Below Risk Factors Present?: Yes Each Factor Represents 1 point: Age 41-60 years Thrombosis Risk Factor Assessment Total Risk Factor Score: 1 Thrombosis Risk Factor Assessment Level: Low Risk
[2021-07-07 10:57] LABS: Chol/HDL Ratio 3.22 Ratio; HDL Cholesterol 80.1 mg/dL (40.00-60.00); LDL Cholesterol,Calculated 165.4 mg/dL (0.0-131.0); Triglycerides 62.4 mg/dL (0.00-149.00); VLDL Calculation 12.48 mg/dL (5.00-40.00)
--- NOTE | 2021-07-07 10:57 | P.CRDCN ---
History of Present Illness History of present illness: HISTORY OF PRESENTING ILLNESS This is a pleasant 56-year-old female past medical history significant for chronic nicotine dependence, family history of CAD. 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 We have been asked to see in consultation for chest pain. Patient presents emergency department from her primary care physician. She states she's been having upper back pain, chest burning sensation, and increased belching for about 1 week. She states her symptoms have increased in frequency and yesterday decided to see her PCP. An EKG was performed and there was concern for ST depression and patient was sent to the emergency department. She states her symptoms are non-exertional. She does have some radiation to her right side of her neck and right upper back. She describes this as a numb feeling. She also endorses some tenderness to right upper quadrant with palpation. She denies any shortness of breath, nausea or vomiting, palpitations, lightheadedness, dizziness, syncope or presyncope. She denies symptoms of orthopnea or PND. She denies any history of hypertension, coronary disease, IA, stroke, diabetes. She is a current every day smoker, but has decreased her cigarettes to 5 cigarettes per day. She denies any alcohol use. She has significant family history of her mother, father, and majority of her siblings with acute IA at a young age. DIAGNOSTICS EKG reveals sinus tachycardia, heart rate 109, nonspecific ST and T wave abnormalities. Chest xray no acute cardiopulmonary process CTA revealed no pulmonary embolism. Laboratory reviewed, troponin negative 3, d-dimer 1.73, COVID-19 PCR negative, WBC 11.8, hemoglobin 15.6, platelets 266, sodium 137, potassium 3.9, BUN 19, serum creatinine 0.8 REVIEW OF SYSTEMS At the time of my exam: CONSTITUTIONAL: Denies fever or chills. CARDIOVASCULAR: Positive burning chest pain Denies shortness of breath, orthopnea, PND or palpitations. RESPIRATORY: Denies cough. GASTROINTESTINAL: + abdominal pain, Denies diarrhea, constipation, nausea or vomiting. MUSCULOSKELETAL: +neck pain and back pain NEUROLOGIC: Denies numbness, tingling, headache or weakness. ENDOCRINE: Denies fatigue, weight change, polydipsia or polyurina. GENITOURINARY: Denies burning, hematuria or urgency with micturation. HEMATOLOGIC: Denies history of anemia or bleeding. PHYSICAL EXAMINATION Blood pressure 110/61, heart rate 74, afebrile maintaining oxygen saturations on room air CONSTITUTIONAL: No apparent distress. HEENT: Head is normocephalic. Pupils are equal, round. Sclerae anicteric. Mucous membranes of the mouth are moist. No JVD. No carotid bruit. CHEST EXAMINATION: Lungs are clear to auscultation. No chest wall tenderness is noted on palpation or with deep breathing. HEART EXAMINATION: Regular rate and rhythm. S1, S2 heard. No murmurs, gallops or rub. ABDOMEN: Soft, +tenderness to palpation to RUQ. Positive bowel sounds. EXTREMITIES: 2+ peripheral pulses, no lower extremity edema and no calf tenderness. SKIN: warm dry NEUROLOGIC EXAMINATION: Patient is awake, alert and oriented x3. ASSESSMENT Chest pain, atypical, acute coronary syndrome has been ruled out Chronic nicotine dependence Significant family history of coronary artery disease PLAN Ultrasound of Gallbladder ordered which revealed gallbladder within normal limits An acute coronary event has been ruled out with no EKG evidence of ischemia and negative cardiac enzymes. Obtain 2D echocardiogram and doppler study to assess cardiac structure and function. Perform stress echo test to assess for stress induced cardiac ischemia. If abnormal will consider coronary angiography. Lipid Panel Smoking cessation discussed and highly recommended. If patient's stress test is normal and no acute findings on echocardiogram, ok to discharge patient from a cardiology perspective. Thank you kindly for this consultation. Nurse Practitioner note has been reviewed, I agree with a documented findings and plan of care. Patient was seen and examined. 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 History of Any Multi-Drug Resistant Organisms: None Reported Past Surgical History: Hysterectomy Additional Past Surgical History / Comment(s): DELLA in 2006. COLONOSCOPY 2018(next after 10yr). Past Anesthesia/Blood Transfusion Reactions: No Reported Reaction Past Psychological History: No Psychological Hx Reported Smoking Status: Current every day smoker Past Alcohol Use History: None Reported Additional Past Alcohol Use History / Comment(s): SMOKED 1/2 PPD, 20 YEARS Past Drug Use History: None Reported - Past Family History Father Family Medical History: Myocardial Infarction ([place]) Brother(s) Family Medical History: Myocardial Infarction ([place]) Additional Family Medical History / Comment(s): She has several aunts who had breast cancer. Medications and Allergies Home Medications Medication Instructions Recorded Confirmed Type Omeprazole [PriLOSEC] 40 mg PO AC-BRKFST #14 cap 07/07/21 Rx Allergies Allergy/AdvReac Type Severity Reaction Status Date / Time albuterol Allergy Dyspnea Verified 07/06/21 17:04 cefaclor [From Ceclor] Allergy Rash/Hives Verified 07/06/21 17:04 cephalexin [From Keflex] Allergy Rash/Hives Verified 07/06/21 17:04 cetirizine [From Zyrtec] Allergy Unknown Verified 07/06/21 17:04 clarithromycin [From Biaxin] Allergy Rash/Hives Verified 07/06/21 17:04 doxycycline Allergy Rash/Hives Verified 07/06/21 17:04 hydroxyzine [From Atarax] Allergy Rash/Hives Verified 07/06/21 17:04 Iodinated Contrast Media Allergy Rash/Hives Verified 07/06/21 17:04 [Iodinated Contrast- Oral and IV Dye] metronidazole Allergy Unknown Verified 07/06/21 17:04 Penicillins Allergy Rash/Hives Verified 07/06/21 17:04 Sulfa (Sulfonamide Allergy Rash/Hives Verified 07/06/21 17:04 Antibiotics) Tetracyclines Allergy Rash/Hives Verified 07/06/21 17:04 levofloxacin [From Levaquin] AdvReac Unknown Verified 07/06/21 17:04 Physical Exam Vitals: Vital Signs Temp Pulse Pulse Resp BP BP Pulse Ox 07/07/21 07:20 74 18 110/61 96 07/07/21 05:13 98.0 F 76 18 126/76 95 07/07/21 04:00 61 18 07/07/21 01:58 75 18 108/60 95 07/07/21 00:00 70 18 97 07/06/21 23:57 71 18 07/06/21 23:11 71 18 07/06/21 22:41 98.6 F 71 18 122/73 96 07/06/21 22:00 75 18 07/06/21 20:23 80 18 120/70 96 07/06/21 18:57 81 18 141/86 99 07/06/21 15:44 99.1 F 113 H 20 153/80 96 Intake and Output 07/06/21 07/07/21 07/07/21 22:59 06:59 14:59 Intake Total 78.874 Balance 78.874 Intake: Intake, IV Titration 78.874 Amount Heparin Sod,Pork in 0.45% 78.874 NaCl 25,000 unit In 0.45 % NaCl 1 250ml.bag @ 12 UNITS/KG/HR 9.798 mls/hr IV .Q24H [facility] Rx#: [id number] Other: Voiding Method Toilet Weight 81.647 kg Results 07/06/21 17:01 07/06/21 17:01 Cardiac Enzymes 07/06/21 07/06/21 07/06/21 Range/Units 17:01 17:01 21:49 AST 26 (14-36) U/L Troponin I <0.012 <0.012 (0.000-0.034) ng/mL 07/06/21 Range/Units 23:37 AST (14-36) U/L Troponin I <0.012 (0.000-0.034) ng/mL Coagulation 07/06/21 07/07/21 Range/Units 17:01 03:05 PT 10.2 (9.0-12.0) sec APTT 27.4 41.8 H (22.0-30.0) sec CBC 07/06/21 Range/Units 17:01 WBC 11.8 H (3.8-10.6) k/uL RBC 5.09 (3.80-5.40) m/uL Hgb 15.6 (11.4-16.0) gm/dL Hct 47.1 H (34.0-46.0) % Plt Count 266 (150-450) k/uL Comprehensive Metabolic Panel 07/06/21 Range/Units 17:01 Sodium 137 (137-145) mmol/L Potassium 3.9 (3.5-5.1) mmol/L Chloride 101 (98-107) mmol/L Carbon Dioxide 25 (22-30) mmol/L BUN 19 H (7-17) mg/dL Creatinine 0.84 (0.52-1.04) mg/dL Glucose 108 H (74-99) mg/dL Calcium 10.1 (8.4-10.2) mg/dL AST 26 (14-36) U/L ALT 24 (4-34) U/L Alkaline Phosphatase 97 (38-126) U/L Total Protein 8.1 (6.3-8.2) g/dL Albumin 5.0 (3.5-5.0) g/dL Current Medications Generic Name Dose Route Start Last Admin Trade Name Simi PRN Reason Stop Dose Admin Acetaminophen 650 mg 07/07/21 02:01 07/07/21 05:05 Acetaminophen Tab 325 Mg Tab PO 650 mg ONCE PRN Administration Mild Pain Aspirin 325 mg 07/07/21 09:00 Aspirin 325 Mg Tab PO DAILY [facility] Heparin Sodium (Porcine) 0 unit 07/07/21 04:45 07/07/21 05:11 Heparin Sodium 1,000 Un/Ml (10ml Vl) IV 2,025 unit PER PROTOCOL PRN Administration Low PTT Protocol Heparin Sodium/Sodium Chloride 250 mls @ 9.798 mls/hr 07/06/21 20:30 07/07/21 05:06 25,000 unit/ Sodium Chloride IV 14 units/kg/hr .Q24H [facility] 11.431 mls/hr Titration Protocol 12 UNITS/KG/HR Nitroglycerin 0.4 mg 07/06/21 20:31 Nitroglycerin Sl Tabs 0.4 Mg Tab SUBLINGUAL Q5M PRN Chest Pain Nitroglycerin 1 inch 07/07/21 00:00 07/07/21 08:17 Nitroglycerin Oint 1 Inch/Gm Packet TOPICAL Not Given Q6HR [facility] Intake and Output 07/06/21 07/07/21 07/07/21 22:59 06:59 14:59 Intake Total 78.874 Balance 78.874 Intake: Intake, IV Titration 78.874 Amount Heparin Sod,Pork in 0.45% 78.874 NaCl 25,000 unit In 0.45 % NaCl 1 250ml.bag @ 12 UNITS/KG/HR 9.798 mls/hr IV .Q24H [facility] Rx#: [id number] Other: Voiding Method Toilet Weight 81.647 kg 07/06/21 17:01 07/06/21 17:01
--- NOTE | 2021-07-07 13:11 | US ---
EXAMINATION TYPE: US carotid duplex BILAT DATE OF EXAM: 07/07/2021 COMPARISON: NONE CLINICAL HISTORY: 56-year-old female LVF. Dizziness TECHNIQUE: Carotid duplex ultrasound examination. Indirect Doppler criteria was utilized. FINDINGS: EXAM MEASUREMENTS: RIGHT: Peak Systolic Velocity (PSV) cm/sec ----- Right CCA: 99.8 ----- Right ICA: 86.0 ----- Right ECA: 77.8 ICA/CCA ratio: 0.86 RIGHT: End Diastole cm/sec ----- Right CCA: 29.7 ----- Right ICA: 37.6 ----- Right ECA: 23.2 LEFT: Peak Systolic Velocity (PSV) cm/sec ----- Left CCA: 78.4 ----- Left ICA: 62.1 ----- Left ECA: 94.4 ICA/CCA ratio: 0.79 LEFT: End Diastole cm/sec ----- Left CCA: 25.5 ----- Left ICA: 29.8 ----- Left ECA: 24.8 VERTEBRALS (direction of flow): Right Vertebral: Antegrade Left Vertebral: Antegrade Rhythm: Normal IMPRESSION: No hemodynamically significant internal carotid artery stenosis on either side. Criteria for Assigning % of Stenosis / Diameter reduction (Estimation based on the indirect measurements of the internal carotid artery velocities (ICA PSV). 1. Normal (no stenosis)=ICA PSV < 125 cm/s: ratio < 2.0: ICA EDV<40 cm/s. 2. Less than 50% stenosis=ICA PSV < 125 cm/s: ratio < 2.0: ICA EDV<40 cm/s. 3. 50 to 69% stenosis=ICA PSV of 125 to 230 cm/s: ration 2.0 ? 4.0: ICA EDV 40-100 cm/s. 4. Greater than 70% stenosis to near occlusion= ICA PSV > 230 cm/s: ratio > 4.0: ICA EDV > 100 cm/s. 5. Near occlusion= ICA PSV velocities may be low or undetectable: variable ratio and ICA EDV. 6. Total occlusion=unable to detect flow.
[2021-07-07 14:31] VITALS: BP 107/62; PULSE 77; RESP 16; TEMP 98.6
--- NOTE | 2021-07-07 15:16 | XR ---
EXAMINATION TYPE: XR cervical spine comp DATE OF EXAM: 07/07/2021 COMPARISON: None HISTORY: 56 year-old female right-sided numbness and left lower neck pain TECHNIQUE: 5 views FINDINGS: Slight degenerative disc disease C4-C5 and C6/C7 with minimal endplate spondylosis. Mild uncovertebra l joint hypertrophy lower cervical spine. Normal odontoid view. On the left, no significant bony or f oraminal narrowing. On the right, no significant bony neuroforaminal narrowing is seen. No predental space widening or prevertebral soft tissue swelling. Alignment is maintained. IMPRESSION: Minimal, age-related degenerative disc disease C4-C5 and C6-C7. Very mild uncovertebral joint spurrin g mid to lower cervical spine. No significant bony neural foraminal narrowing on either side. No caterina lignment.
--- NOTE | 2021-07-07 17:04 | ECHOS ---
STRESS ECHOCARDIOGRAM DATE OF STUDY: 07/07/2021 INDICATIONS: Chest pain. BASELINE HEART RATE: 78 BASELINE BLOOD PRESSURE: 129/54 MAXIMUM HEART RATE: 160 MAXIMUM BLOOD PRESSURE: 144/61 85% MPHR: 141 100% MPHR: 166 METS: 3.3 MAXIMUM STAGE REACHED: II TOTAL EXERCISE TIME: 6 min CLINICAL INFORMATION: STRESS DATA: Heart rate 78, pressure 129/54 mmHg. Baseline EKG showed sinus mechanism. The patient exercised on the treadmill according to Timothy protocol for a total of 6 minutes and achieved 3.3 METS. Max heart rate was 160, which is about 96% of maximum predicted heart rate, with maximum blood pressure of 144/61 mmHg. Clinically the patient did not have any symptoms of chest pain or chest discomfort. The EKG did not show any significant ST or T-wave abnormalities concerning for ischemia. Echocardiogram images from parasternal long axis view, parasternal short axis view, apical 4-chamber and apical 2-chamber views were obtained as the baseline images at the peak of the heart rate as well as on recovery. The echo showed good augmentation in the left ventricular systolic function without any evidence of wall motion abnormalities concerning for ischemia. CONCLUSION: 1. Good exercise tolerance. 2. Normal EKG in response to exercise. 3. Normal echocardiogram in response to exercise. MMODL / IJN: [id number] /
--- NOTE | 2021-07-08 10:00 | ECHOF ---
Referral Reason:LV function MEASUREMENTS -------- HEIGHT: 165.1 cm WEIGHT: 81.6 kg BP: RVIDd: 2.3 cm (< 3.3) IVSd: 1.3 cm (0.6 - 1.1) LVIDd: 3.4 cm (3.9 - 5.3) LVPWd: 1.3 cm (0.6 - 1.1) IVSs: 1.5 cm LVIDs: 3.2 cm LVPWs: 1.1 cm LA Diam: 3.5 cm (2.7 - 3.8) Ao Diam: 3.1 cm (2.0 - 3.7) AV Cusp: 2.2 cm (1.5 - 2.6) MV EXCURSION: 18.048 mm (> 18.000) MV EF SLOPE: 74 mm/s (70 - 150) EPSS: 0.6 cm MV E Major: 0.41 m/s MV DecT: 243 ms MV A Major: 0.70 m/s MV E/A Ratio: 0.58 RAP: 5.00 mmHg RVSP: 21.28 mmHg FINDINGS -------- Sinus rhythm. This was a techncally difficult study with suboptimal views, , Lumason utilized for enhancement of im ages. LV size, wall thickness and systolic function are normal, with an EF greater than 55%. The left win tricular size is normal. The right ventricle is normal in size. The left atrial size is normal. The right atrial size is normal. 5.0mg OF Lumason UTLIZED: 2 OR MORE WALL SEGMENTS NOT VISUALIZED. There is mild aortic valve sclerosis. There is no evidence of aortic regurgitation. Mild mitral annular calcification present. Mild mitral regurgitation is present. Mild tricuspid regurgitation present. Right ventricular systolic pressure is normal at < 35 mmHg. The pulmonic valve was not well visualized. There is no pericardial effusion. CONCLUSIONS -------- 1. LV size, wall thickness and systolic function are normal, with an EF greater than 55%. 2. The left ventricular size is normal. 3. The right ventricle is normal in size. 4. The left atrial size is normal. 5. The right atrial size is normal. 6. 5.0mg OF Lumason UTLIZED: 2 OR MORE WALL SEGMENTS NOT VISUALIZED. 7. There is mild aortic valve sclerosis. 8. Mild mitral annular calcification present. 9. Mild mitral regurgitation is present. 10. Mild tricuspid regurgitation present. 11. The pulmonic valve was not well visualized. 12. There is no pericardial effusion. MAKEUP SALES ADVISOR: Ilana Montana RDCS
== END 2021-07-07 16:49 | disposition home or self-care (01) | DRG 311 ==
LOC: EC 15:33 → OBSVTOIN 20:31 → 6NMEDSUR 20:31
PROVIDERS: ADMIT Internal Medicine Geriatric Medicine; ATTEND Internal Medicine Geriatric Medicine
DX: I20.0 Unstable angina (principal); Z20.822 Contact with and (suspected) exposure to COVID-19; Z80.3 Family history of malignant neoplasm of breast; Z82.49 Family history of ischemic heart disease and other diseases of the circulatory system; Z90.710 Acquired absence of both cervix and uterus; I25.2 Old myocardial infarction; L98.9 Disorder of the skin and subcutaneous tissue, unspecified; R00.0 Tachycardia, unspecified; F17.200 Nicotine dependence, unspecified, uncomplicated
CPT/HCPCS: 36415; 71046; 71275; 72050; 76705; 80053; 80061; 83735; 84484; 85025; 85379; 85610; 85730; 87635; 93005; 93306; 93351; 93880; 96374; 96375; 99291

== ENCOUNTER → 2021-09-30 | Outpatient (CLI) | payer OTHER ==
--- NOTE | 2021-10-01 09:27 | MM ---
Reason for exam: screening (asymptomatic). Last mammogram was performed 1 year and 4 months ago. History: Patient is postmenopausal. Family history of breast cancer in maternal aunt at age 60 and breast cancer in maternal aunt at age 55. Physical Findings: A clinical breast exam by your physician is recommended on an annual basis and results should be correlated with mammographic findings. MG 3D Screening Mammo W/Cad Bilateral CC and MLO view(s) were taken. Prior study comparison: May 28, 2020, bilateral MG 3d screening mammo w/cad. March 06, 2019, bilateral MG 3d screening mammo w/cad. The breast tissue is heterogeneously dense. This may lower the sensitivity of mammography. Finding: There is an equal, spiculated architectural distortion in the upper quadrant, posterior position of the right breast on CC view, not on MLO view. New finding since May 28, 2020. ASSESSMENT: Incomplete: need additional imaging evaluation, BI-RAD 0 RECOMMENDATION: Special view mammogram of the right breast. If lesion persists on supplemental views, image directed ultrasound is recommended. [facility] will attempt to contact patient to return for supplemental views and ultrasound if indicated.
== END | disposition home or self-care (01) ==
LOC: RADMAMWWP 06:57
PROVIDERS: ATTEND Internal Medicine
DX: Z12.31 Encounter for screening mammogram for malignant neoplasm of breast (principal); Z78.0 Asymptomatic menopausal state; Z80.3 Family history of malignant neoplasm of breast
CPT/HCPCS: 77063; 77067

== ENCOUNTER → 2021-10-04 | Outpatient (CLI) | payer OTHER ==
--- NOTE | 2021-10-04 08:32 | MM ---
Reason for exam: additional evaluation requested from abnormal screening. Last mammogram was performed less than 1 month ago. History: Patient is postmenopausal. Family history of breast cancer in maternal aunt at age 60 and breast cancer in maternal aunt at age 55. Physical Findings: Nurse did not find any significant physical abnormalities on exam. MG 3D Work Up W/Cad RT Spot compression CC and ML view(s) were taken of the right breast. Prior study comparison: September 30, 2021, bilateral MG 3d screening mammo w/cad. May 28, 2020, bilateral MG 3d screening mammo w/cad. The breast tissue is heterogeneously dense. This may lower the sensitivity of mammography. No persisting distortion posteriorly. No significant new findings when compared with previous films. These results were verbally communicated with the patient and result sheet given to the patient on 10/04/21. ASSESSMENT: Benign, BI-RAD 2 RECOMMENDATION: Return to routine screening mammogram schedule for both breasts.
== END | disposition home or self-care (01) ==
LOC: RADMAMWWP 06:56
PROVIDERS: ATTEND Internal Medicine
DX: R92.8 Other abnormal and inconclusive findings on diagnostic imaging of breast (principal); Z78.0 Asymptomatic menopausal state; Z80.3 Family history of malignant neoplasm of breast
CPT/HCPCS: 77061; 77065

== ENCOUNTER 2022-09-01 08:28 | Emergency (ER) | payer OTHER ==
[2022-09-01 08:33] VITALS: TEMP 98.5
--- NOTE | 2022-09-01 08:49 | ED ---
SOB HPI - General Chief Complaint: Shortness of Breath Stated Complaint: sob Time Seen by Provider: 09/01/22 08:36 Source: patient Mode of arrival: ambulatory Limitations: no limitations - History of Present Illness Initial Comments: 57-year-old female with past medical history of Mnire's who presents to the emergency room reporting short of breath. She has no underlying lung or pulmonary issues. States that for the past 2 weeks that she has had worsening shortness of breath with nasal congestion, sore throat and myalgias. She was seen at an urgent care and tested for Covid and influenza. The testing was negative. She then saw her primary care doctor yesterday who placed her on codeine cough syrup. 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 She has been using Flonase and Claritin without improvement in her symptoms. States that today she had acute onset of shortness of breath. The episode lasted for approximately 30 seconds before she could catch her breath. She denies any fevers. No nausea or vomiting. Denies chest pain. Other alleviating, or modifying factors - Related Data Home Medications Medication Instructions Recorded Confirmed Cough Medicince (Unknown Otc) 1 dose PO DIRECTED 09/01/22 09/01/22 Fluticasone Nasal [place] [Flonase 1 - 2 spray EA NOSTRIL DAILY 09/01/22 09/01/22 Nasal [place]] Loratadine [Claritin] 10 mg PO DAILY 09/01/22 09/01/22 Previous Rx's Medication Instructions Recorded Benzonatate [Tessalon Perles] 100 mg PO TID PRN #15 capsule 09/01/22 Codeine Phosphate/Guaifenesin 10 ml PO Q6H PRN 3 Days #120 ml 09/01/22 [Guaiatussin AC Liquid] predniSONE [Deltasone] 20 mg PO BID #10 tab 09/01/22 Allergies Allergy/AdvReac Type Severity Reaction Status Date / Time albuterol Allergy Dyspnea Verified 09/01/22 09:40 cefaclor [From Ceclor] Allergy Rash/Hives Verified 09/01/22 09:40 cephalexin [From Keflex] Allergy Rash/Hives Verified 09/01/22 09:40 cetirizine [From Zyrtec] Allergy Unknown Verified 09/01/22 09:40 clarithromycin [From Biaxin] Allergy Rash/Hives Verified 09/01/22 09:40 doxycycline Allergy Rash/Hives Verified 09/01/22 09:40 hydroxyzine [From Atarax] Allergy Rash/Hives Verified 09/01/22 09:40 Iodinated Contrast Media Allergy Rash/Hives Verified 09/01/22 09:40 [Iodinated Contrast- Oral and IV Dye] metronidazole Allergy Unknown Verified 09/01/22 09:40 Penicillins Allergy Rash/Hives Verified 09/01/22 09:40 Sulfa (Sulfonamide Allergy Rash/Hives Verified 09/01/22 09:40 Antibiotics) Tetracyclines Allergy Rash/Hives Verified 09/01/22 09:40 levofloxacin [From Levaquin] AdvReac Unknown Verified 09/01/22 09:40 Review of Systems ROS Statement: Those systems with pertinent positive or pertinent negative responses have been documented in the HPI. ROS Other: All systems not noted in ROS Statement are negative. 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 History of Any Multi-Drug Resistant Organisms: None Reported Past Surgical History: Hysterectomy Additional Past Surgical History / Comment(s): DELLA in 2006. COLONOSCOPY 2018(next after 10yr). Past Anesthesia/Blood Transfusion Reactions: No Reported Reaction Past Psychological History: No Psychological Hx Reported Smoking Status: Current every day smoker Past Alcohol Use History: None Reported Past Drug Use History: None Reported - Past Family History Father Family Medical History: Myocardial Infarction ([place]) Brother(s) Family Medical History: Myocardial Infarction ([place]) Additional Family Medical History / Comment(s): She has several aunts who had breast cancer. General Exam Limitations: no limitations General appearance: alert, in no apparent distress Head exam: Present: atraumatic, normocephalic, normal inspection Eye exam: Present: normal appearance, PERRL, EOMI. Absent: scleral icterus, conjunctival injection, periorbital swelling ENT exam: Present: normal exam, mucous membranes moist Neck exam: Present: normal inspection. Absent: tenderness, meningismus, lymphadenopathy Respiratory exam: Present: normal lung sounds bilaterally. Absent: respiratory distress, wheezes, rales, rhonchi, stridor Cardiovascular Exam: Present: regular rate, normal rhythm, normal heart sounds. Absent: systolic murmur, diastolic murmur, rubs, gallop, clicks GI/Abdominal exam: Present: soft, normal bowel sounds. Absent: distended, tenderness, guarding, rebound, rigid Extremities exam: Present: normal inspection, full ROM, normal capillary refill. Absent: tenderness, pedal edema, joint swelling, calf tenderness Back exam: Present: normal inspection Neurological exam: Present: alert, oriented X3, CN II-XII intact Psychiatric exam: Present: normal affect, normal mood Skin exam: Present: warm, dry, intact, normal color. Absent: rash Course Vital Signs 09/01/22 09/01/22 09/01/22 08: 08:32 10:37 Temperature 98.5 F Pulse Rate 85 80 Respiratory 18 20 18 Rate Blood Pressure 139/85 145/80 O2 Sat by Pulse 97 99 Oximetry 09/01/22 09/01/22 11:00 12:33 Temperature Pulse Rate 69 Respiratory 22 18 Rate Blood Pressure 145/80 129/78 O2 Sat by Pulse 96 97 Oximetry Medical Decision Making - Medical Decision Making Upon arrival patient was placed into room 2. There are history and physical exam was performed. IV access was established laboratory studies were conducted. D-dimer is 1.3. Influenza, Covid and RSV is not detected. Chest x- rays performed. Patient is then sent for a CT for evaluation of pulmonary embolism which is negative. Patient has not had any shortness of breath while in the emergency room. Did discuss the diagnosis and treatment options with the patient. Patient will be discharged home at this time on a course of steroids and Tessalon Perles. She is instructed to continue taking other medications as directed including the Claritin, Flonase and codeine cough syrup. Follow-up with her doctor and return for any new or worsening symptoms. Patient was discharged home in stable condition - Lab Data Result diagrams: 09/01/22 08:47 09/01/22 08:47 Lab Results 09/01/22 09/01/22 09/01/22 Range/Units 08:47 08:47 08:47 WBC 7.7 (3.8-10.6) k/uL RBC 4.57 (3.80-5.40) m/uL Hgb 13.9 (11.4-16.0) gm/dL Hct 40.9 (34.0-46.0) % MCV 89.5 (80.0-100.0) fL MCH 30.4 (25.0-35.0) pg MCHC 33.9 (31.0-37.0) g/dL RDW 12.7 (11.5-15.5) % Plt Count 269 (150-450) k/uL MPV 7.0 Neutrophils % 67 % Lymphocytes % 24 % Monocytes % 4 % Eosinophils % 1 % Basophils % 0 % Neutrophils # 5.2 (1.3-7.7) k/uL Lymphocytes # 1.8 (1.0-4.8) k/uL Monocytes # 0.3 (0-1.0) k/uL Eosinophils # 0.1 (0-0.7) k/uL Basophils # 0.0 (0-0.2) k/uL PT 10.3 (9.0-12.0) sec INR 1.0 (<1.2) APTT 27.5 (22.0-30.0) sec D-Dimer 1.31 H (<0.60) mg/L FEU Sodium 140 (137-145) mmol/L Potassium 3.9 (3.5-5.1) mmol/L Chloride 109 H (98-107) mmol/L Carbon Dioxide 27 (22-30) mmol/L Anion Gap 4 mmol/L BUN 9 (7-17) mg/dL Creatinine 0.69 (0.52-1.04) mg/dL Est GFR (CKD-EPI)AfAm >90 (>60 ml/min/1.73 sqM) Est GFR (CKD-EPI)NonAf >90 (>60 ml/min/1.73 sqM) Glucose 112 H (74-99) mg/dL Plasma Lactic Acid Randell (0.7-2.0) mmol/L Calcium 9.1 (8.4-10.2) mg/dL Total Bilirubin 0.4 (0.2-1.3) mg/dL AST 18 (14-36) U/L ALT 17 (4-34) U/L Alkaline Phosphatase 83 (38-126) U/L Troponin I (0.000-0.034) ng/mL NT-Pro-B Natriuret Pep pg/mL Total Protein 6.7 (6.3-8.2) g/dL Albumin 4.3 (3.5-5.0) g/dL Influenza Type A (PCR) (Not Detectd) Influenza Type B (PCR) (Not Detectd) RSV (PCR) (Not Detectd) SARS-CoV-2 (PCR) (Not Detectd) 09/01/22 09/01/22 09/01/22 Range/Units 08:47 08:47 08:47 WBC (3.8-10.6) k/uL RBC (3.80-5.40) m/uL Hgb (11.4-16.0) gm/dL Hct (34.0-46.0) % MCV (80.0-100.0) fL MCH (25.0-35.0) pg MCHC (31.0-37.0) g/dL RDW (11.5-15.5) % Plt Count (150-450) k/uL MPV Neutrophils % % Lymphocytes % % Monocytes % % Eosinophils % % Basophils % % Neutrophils # (1.3-7.7) k/uL Lymphocytes # (1.0-4.8) k/uL Monocytes # (0-1.0) k/uL Eosinophils # (0-0.7) k/uL Basophils # (0-0.2) k/uL PT (9.0-12.0) sec INR (<1.2) APTT (22.0-30.0) sec D-Dimer (<0.60) mg/L FEU Sodium (137-145) mmol/L Potassium (3.5-5.1) mmol/L Chloride (98-107) mmol/L Carbon Dioxide (22-30) mmol/L Anion Gap mmol/L BUN (7-17) mg/dL Creatinine (0.52-1.04) mg/dL Est GFR (CKD-EPI)AfAm (>60 ml/min/1.73 sqM) Est GFR (CKD-EPI)NonAf (>60 ml/min/1.73 sqM) Glucose (74-99) mg/dL Plasma Lactic Acid Randell 1.0 (0.7-2.0) mmol/L Calcium (8.4-10.2) mg/dL Total Bilirubin (0.2-1.3) mg/dL AST (14-36) U/L ALT (4-34) U/L Alkaline Phosphatase (38-126) U/L Troponin I <0.012 (0.000-0.034) ng/mL NT-Pro-B Natriuret Pep 79 pg/mL Total Protein (6.3-8.2) g/dL Albumin (3.5-5.0) g/dL Influenza Type A (PCR) (Not Detectd) Influenza Type B (PCR) (Not Detectd) RSV (PCR) (Not Detectd) SARS-CoV-2 (PCR) (Not Detectd) 09/01/22 Range/Units 08:47 WBC (3.8-10.6) k/uL RBC (3.80-5.40) m/uL Hgb (11.4-16.0) gm/dL Hct (34.0-46.0) % MCV (80.0-100.0) fL MCH (25.0-35.0) pg MCHC (31.0-37.0) g/dL RDW (11.5-15.5) % Plt Count (150-450) k/uL MPV Neutrophils % % Lymphocytes % % Monocytes % % Eosinophils % % Basophils % % Neutrophils # (1.3-7.7) k/uL Lymphocytes # (1.0-4.8) k/uL Monocytes # (0-1.0) k/uL Eosinophils # (0-0.7) k/uL Basophils # (0-0.2) k/uL PT (9.0-12.0) sec INR (<1.2) APTT (22.0-30.0) sec D-Dimer (<0.60) mg/L FEU Sodium (137-145) mmol/L Potassium (3.5-5.1) mmol/L Chloride (98-107) mmol/L Carbon Dioxide (22-30) mmol/L Anion Gap mmol/L BUN (7-17) mg/dL Creatinine (0.52-1.04) mg/dL Est GFR (CKD-EPI)AfAm (>60 ml/min/1.73 sqM) Est GFR (CKD-EPI)NonAf (>60 ml/min/1.73 sqM) Glucose (74-99) mg/dL Plasma Lactic Acid Randell (0.7-2.0) mmol/L Calcium (8.4-10.2) mg/dL Total Bilirubin (0.2-1.3) mg/dL AST (14-36) U/L ALT (4-34) U/L Alkaline Phosphatase (38-126) U/L Troponin I (0.000-0.034) ng/mL NT-Pro-B Natriuret Pep pg/mL Total Protein (6.3-8.2) g/dL Albumin (3.5-5.0) g/dL Influenza Type A (PCR) Not Detected (Not Detectd) Influenza Type B (PCR) Not Detected (Not Detectd) RSV (PCR) Not Detected (Not Detectd) SARS-CoV-2 (PCR) Not Detected (Not Detectd) - EKG Data EKG Comments: EKG demonstrates sinus rhythm with rate of 75. PE interval 133. QRS 86. QTC of 428. No acute ST segment elevations or depressions. EKG interpreted by myself Disposition Clinical Impression: Acute respiratory insufficiency, Bronchospasm Disposition: HOME SELF-CARE Condition: Stable Instructions (If sedation given, give patient instructions): Bronchospasm (ED) Additional Instructions: Take the Flonase, Claritin, cough suppressant, Tessalon Perles and steroids for your symptoms. Follow up with your primary care doctor. Return for any new or worsening symptoms. Prescriptions: predniSONE [Deltasone] 20 mg PO BID #10 tab Codeine Phosphate/Guaifenesin [Guaiatussin AC Liquid] 10 ml PO Q6H PRN 3 Days #120 ml PRN Reason: Cough Benzonatate [Tessalon Perles] 100 mg PO TID PRN #15 capsule PRN Reason: Cough Is patient prescribed a controlled substance at d/c from ED?: Yes When asked, does pt state using other controlled substances?: No If prescribed controlled substance>3 days was MAPS reviewed?: Prescribed <3 Days Referrals: Tulio Constantino MD [Primary Care Provider] - 1-2 days Time of Disposition: 12:22
[2022-09-01 09:26] LABS: Basophils % (A) 0 %; Eosinophils # (A) 0.1 k/uL (0-0.7); Eosinophils % (A) 1 %; HCT 40.9 % (34.0-46.0); HGB 13.9 gm/dL (11.4-16.0); Lymphocytes # (A) 1.8 k/uL (1.0-4.8); Lymphocytes % (A) 24 %; MCH 30.4 pg (25.0-35.0); MCHC 33.9 g/dL (31.0-37.0); MCV 89.5 fL (80.0-100.0); Monocytes # (A) 0.3 k/uL (0-1.0); Monocytes % (A) 4 %; Neutrophils # (A) 5.2 k/uL (1.3-7.7); Neutrophils % (A) 67 %; Platelet Count 269 k/uL (150-450); RBC 4.57 m/uL (3.80-5.40); RDW 12.7 % (11.5-15.5); WBC 7.7 k/uL (3.8-10.6)
--- NOTE | 2022-09-01 09:30 | XR ---
EXAMINATION TYPE: XR chest 2V DATE OF EXAM: 09/01/2022 COMPARISON: 07/06/2021 INDICATION: Difficulty breathing TECHNIQUE: Frontal and lateral views of the chest are obtained. FINDINGS: The heart size is normal. The pulmonary vasculature is normal. The lungs are clear. IMPRESSION: 1. No acute pulmonary process.
[2022-09-01 09:39] LABS: Partial Thromboplastin Time 27.5 sec (22.0-30.0); Prothrombin Time 10.3 sec (9.0-12.0)
[2022-09-01 09:46] LABS: ALT 17 U/L (4-34); AST 18 U/L (14-36); African American GFR (CKD) >90 (>60 ml/min/1.73 sqM); Albumin 4.3 g/dL (3.5-5.0); Alkaline Phosphatase 83 U/L (38-126); Anion Gap 4 mmol/L; Blood Urea Nitrogen 9 mg/dL (7-17); Calcium 9.1 mg/dL (8.4-10.2); Carbon Dioxide 27 mmol/L (22-30); Chloride 109 mmol/L (98-107); Glucose 112 mg/dL (74-99); Non-African American GFR(CKD) >90 (>60 ml/min/1.73 sqM); Potassium 3.9 mmol/L (3.5-5.1); Sodium 140 mmol/L (137-145); Total Bilirubin 0.4 mg/dL (0.2-1.3); Total Protein 6.7 g/dL (6.3-8.2)
[2022-09-01] MEDS ORDERED: methylPREDNISolone SOD SUCCI 125 MG/2 ML VIAL IV STA (10:22)
[2022-09-01] MEDS ORDERED: diphenhydrAMINE 50 MG/ML 1 ML VIAL IVP STA (10:22)
[2022-09-01] MEDS ORDERED: FAMOTIDINE 20 MG/2 ML VIAL IV STA (10:22)
--- NOTE | 2022-09-01 11:36 | CT ---
EXAMINATION TYPE: CT chest angio for PE CT DLP: 409.5 mGycm, Automated exposure control for dose reduction was used. DATE OF EXAM: 09/01/2022 11:10 AM COMPARISON: 07/06/2021 CT. CLINICAL INDICATION:Female, 57 years old with history of elevated d-dimer; Elevated d-dimer and cough . TECHNIQUE/CONTRAST: CTA scan of the thorax is performed with IV Contrast, patient injected with 80ml mL of Isovue 370, pu lmonary embolism protocol. MIP images are created and reviewed. FINDINGS: Pulmonary Artery: There is no evidence for a filling defect within the pulmonary vasculature to sugge st acute pulmonary embolism. The pulmonary artery is of normal size. Lungs/Pleura: No evidence of focal consolidation, pleural effusion or pneumothorax. Airway: Large airways are patent. Heart: Heart is within normal limits for size. Vasculature: No evidence of aortic aneurysm. Mediastinum: No gross evidence of adenopathy. Musculoskeletal: No acute osseous abnormalities mild multilevel disc degeneration changes throughout the spine. Soft Tissues: Unremarkable. Lower neck: No significant findings. Upper Abdomen: Right hepatic lobe cyst. IMPRESSION: No evidence of pulmonary embolism. No acute thoracic process.
[2022-09-01] MEDS ORDERED: predniSONE 20 MG TAB PO STA (12:20)
[2022-09-01 12:35] VITALS: BP 129/78; PULSE 69; RESP 18
== END 2022-09-01 12:50 | disposition home or self-care (01) ==
LOC: EC 08:28
DX: J98.01 Acute bronchospasm (principal); F17.200 Nicotine dependence, unspecified, uncomplicated; Z88.0 Allergy status to penicillin; Z88.1 Allergy status to other antibiotic agents; Z88.2 Allergy status to sulfonamides; Z88.8 Allergy status to other drugs, medicaments and biological substances; Z20.822 Contact with and (suspected) exposure to COVID-19
CPT/HCPCS: 99285; 96374; 96375 ×2; 36415; 93005; 85379; 83880; 80053; 83605; 84484; 85025; 85610; 85730; 87636; 71046; 71275; J1200; J2930; J7512; Q9967

== ENCOUNTER → 2023-01-31 | Outpatient (CLI) | payer OTHER ==
[2023-01-31 07:54] VITALS: BP 127/74; PULSE 84; RESP 16; TEMP 98
--- NOTE | 2023-01-31 08:38 | P.HPOB ---
History of Present Illness H&P Date: 01/31/23 Chief Complaint: The patient is here for her routine gynecologic exam and ma mmogram. This is a 57-year-old with an LMP of 2005. She is status post DELLA for uterine fibroids. She is complaining of vaginal dryness. She states she did not use the Premarin vaginal cream which was recommended because of her concerns that it could cause breast cancer. She is otherwise without complaints. Review of Systems She is gained about 12 pounds over the past 3 years. She believes she has gained some weight because she quit smoking. She denies respiratory, cardiac, or GI problems. 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 History of Any Multi-Drug Resistant Organisms: None Reported Past Surgical History: Hysterectomy Additional Past Surgical History / Comment(s): DELLA in 2005. COLONOSCOPY 2018(next after 5yr). Past Anesthesia/Blood Transfusion Reactions: No Reported Reaction Past Psychological History: No Psychological Hx Reported Smoking Status: Former smoker Past Alcohol Use History: Rare (0-1 year) Additional Past Alcohol Use History / Comment(s): SMOKED 1/2 PPD, 20 YEARS. Quit smoking in 2022. Past Drug Use History: None Reported Additional History: She has been since 2019 and this is her second marriage. She has not been sexually active because of her 's prostate treatment. 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 - Past Family History Father Family Medical History: Myocardial Infarction ([place]) Brother(s) Family Medical History: Myocardial Infarction ([place]) Additional Family Medical History / Comment(s): She has several aunts who had breast cancer. Mother Family Medical History: Cancer Additional Family Medical History / Comment(s): from rectal cancer. Medications and Allergies Home Medications Medication Instructions Recorded Confirmed Type Fluticasone Nasal [place] [Flonase 1 - 2 spray EA NOSTRIL DAILY 09/01/22 01/31/23 History Nasal [place]] Loratadine [Claritin] 10 mg PO DAILY 09/01/22 01/31/23 History Multivitamin [Multivitamins Adult 1 tablet PO DAILY 01/31/23 01/31/23 History Gummies] [place]-3/Dha/Epa/Fish Oil [Fish Oil 1 cap PO DAILY 01/31/23 01/31/23 History 1,000 mg Softgel] Vitamin D3/Vitamin K2 (Mk4) 1 tablet PO DAILY 01/31/23 01/31/23 History [Vitamin K2 Plus D3 Tablet] Allergies Allergy/AdvReac Type Severity Reaction Status Date / Time albuterol Allergy Dyspnea Verified 01/31/23 07:47 cefaclor [From Ceclor] Allergy Rash/Hives Verified 01/31/23 07:47 cephalexin [From Keflex] Allergy Rash/Hives Verified 01/31/23 07:47 cetirizine [From Zyrtec] Allergy Unknown Verified 01/31/23 07:47 clarithromycin [From Biaxin] Allergy Rash/Hives Verified 01/31/23 07:47 doxycycline Allergy Rash/Hives Verified 01/31/23 07:47 hydroxyzine [From Atarax] Allergy Rash/Hives Verified 01/31/23 07:47 Iodinated Contrast Media Allergy Rash/Hives Verified 01/31/23 07:47 [Iodinated Contrast- Oral and IV Dye] metronidazole Allergy Unknown Verified 01/31/23 07:47 Penicillins Allergy Rash/Hives Verified 01/31/23 07:47 Sulfa (Sulfonamide Allergy Rash/Hives Verified 01/31/23 07:47 Antibiotics) Tetracyclines Allergy Rash/Hives Verified 01/31/23 07:47 levofloxacin [From Levaquin] AdvReac Unknown Verified 01/31/23 07:47 Exam Vital Signs Temp Pulse Resp BP Pulse Ox 01/31/23 07:49 98 F 84 16 127/74 97 Intake and Output 01/30/23 01/31/23 01/31/23 22:59 06:59 14:59 Other: Weight 94.347 kg Height 5 feet 6 inches, weight 208 pounds, BMI 33.6. This is a well-developed well-nourished white female who is alert and oriented times 3 in no acute distress. HEENT: Within normal limits. NECK: Supple without mass or thyromegaly. CHEST AND LUNGS: Clear to auscultation. HEART: Regular rate and rhythm. BREASTS: Are without mass or discharge. AXILLARY EXAM: Negative for adenopathy. BACK: Negative for CVA tenderness. ABDOMEN: Soft, nontender, without palpable masses. PELVIC EXAM: External genitalia appears normal with mild atrophy. Vagina appears normal with mild atrophy. There is no evidence of prolapse. Bimanual examination is negative for mass or tenderness. RECTAL EXAM: Rectovaginal exam is negative for mass or tenderness and is negative for occult blood. EXTREMITIES: Nontender. IMPRESSION: 1. 57-year-old menopausal female status post DELLA for benign reasons, with normal gynecologic exam. 2. Vaginal dryness probably secondary to atrophy. PLAN: 1. Pap smears have been discontinued. 2. Self breast awareness was discussed with the patient. We have also discussed symptoms associated with inflammatory breast cancer. 3. Screening mammogram will be done today. 4. Osteoporosis prevention was discussed. I have stressed the importance of adequate calcium, vitamin D and regular exercise. Recommended amounts of calcium and vitamin D were also discussed. 5. Trial of Premarin vaginal cream. We have had long discussion regarding WHI study findings for use of estrogen alone. She understands that there was no significant increase in breast cancer with estrogen only use. She also understands that vaginal cream use would give her body much less than systemic estrogen use. After the discussion, she would like to have a trial of the Premarin vaginal cream. She will use 1 g into the vagina 2 times weekly. The electronic prescription will be sent to [facility] in [facility]. 6. I recommended screening colonoscopy since it has been about 5 years since her last one. I recommended she do this at least every 5 years because of her mother's history of rectal cancer. She will discuss this with her PCP to have this arranged. 7. She was advised to return in one year for her annual well woman exam.
--- NOTE | 2023-02-01 11:06 | MM ---
Reason for Exam: Screening (asymptomatic). Last mammogram was performed 1 year(s) and 4 month(s) ago. Patient History: Menarche at age 16. First Full-Term at age 20. Hysterectomy at age 41. Postmenopausal. Maternal aunt had breast cancer, age 60. Maternal aunt had breast cancer, age 55. Maternal aunt had breast cancer, age 45. Risk Values: Poornima 5 year model risk: 0.8%. NCI Lifetime model risk: 5.5%. Prior Study Comparison: 05/28/2020 Bilateral Screening Mammogram, [facility]. 09/30/2021 Bilateral Screening Mammogram, [facility]. 10/04/2021 Right Diagnostic Mammogram, [facility]. Tissue Density: The breast tissue is heterogeneously dense. This may lower the sensitivity of mammography. Findings: Analyzed By CAD. There is occasional tiny benign appearing round calcifications seen in bilateral breasts. There is no suspicious group of microcalcifications or new suspicious mass in either breast. Overall Assessment: Benign, BI-RAD 2 Management: Screening Mammogram of both breasts in 1 year. . Patient should continue monthly self-breast exams. A clinical breast exam by your physician is recommended on an annual basis. This exam should not preclude additional follow-up of suspicious palpable abnormalities. Note on Poornima scores and lifetime risk: 1. A Poornima score greater than 3% is considered moderate risk. If this is the case, consider specialist referral to assess eligibility for a risk reducing agent. 2. If overall lifetime risk for the development of breast cancer is 20% or higher, the patient may qualify for future screening with alternating mammogram and breast MRI. Electronically signed and approved by: Urbano Montero M.D.
== END ==
LOC: WWCWWP 07:39
PROVIDERS: ATTEND Obstetrics & Gynecology
DX: Z12.31 Encounter for screening mammogram for malignant neoplasm of breast (principal); Z01.419 Encounter for gynecological examination (general) (routine) without abnormal findings; F17.200 Nicotine dependence, unspecified, uncomplicated; Z80.3 Family history of malignant neoplasm of breast; Z86.018 Personal history of other benign neoplasm; Z88.0 Allergy status to penicillin; Z88.1 Allergy status to other antibiotic agents; Z88.2 Allergy status to sulfonamides; Z88.8 Allergy status to other drugs, medicaments and biological substances; Z90.710 Acquired absence of both cervix and uterus; Z88.6 Allergy status to analgesic agent; Z91.041 Radiographic dye allergy status
CPT/HCPCS: 77063; 77067

== ENCOUNTER → 2023-07-25 | Outpatient (CLI) | payer OTHER ==
[2023-07-25 13:31] LABS: Basophils # (A) 0.07 X 10*3/uL (0.00-0.10); Basophils % (A) 1.1 %; Eosinophils % (A) 3.1 %; HCT 42.4 % (37.2-46.3); Lymphocytes # (A) 2.24 X 10*3/uL (0.90-5.00); MCH 30.1 pg (27.0-32.0); MCV 91.2 FL (80.0-97.0); Mean Platelet Volume 9.6 FL (9.5-12.2); Monocytes # (A) 0.51 X 10*3/uL (0.20-1.00); NRBC Per 100 WBC 0 X 10*3/uL (0.00-0.01); Neutrophils # (A) 3.35 X 10*3/uL (1.80-7.70); Neutrophils % (A) 52.3 %; Platelet Count 272 X 10*3/uL (140-440); RBC 4.65 X 10*6/uL (4.10-5.20); RDW 12.9 % (11.5-14.5)
[2023-07-25 13:50] LABS: ALT 19 U/L (8-44); AST 14 U/L (13-35); Albumin 4.5 g/dL (3.8-4.9); Albumin/Globulin Ratio 2.14 Ratio (1.60-3.17); Alkaline Phosphatase 75 U/L (41-126); BUN/Creat Ratio 23.25 Ratio (12.00-20.00); Blood Urea Nitrogen 18.6 mg/dL (9.0-27.0); Calcium 9.9 mg/dL (8.7-10.3); Carbon Dioxide 26.1 mmol/L (21.6-31.8); Chloride 104 mmol/L (96-109); Chol/HDL Ratio 3.18 Ratio; Globulin 2.1 g/dL (1.6-3.3); Glucose 100 mg/dL (70-110); Potassium 4.6 mmol/L (3.5-5.5); Sodium 140 mmol/L (135-145); Total Bilirubin 0.3 mg/dL (0.3-1.2); Total Protein 6.6 g/dL (6.2-8.2)
== END | disposition home or self-care (01) ==
LOC: LABWHC1 06:54
PROVIDERS: ATTEND Internal Medicine
DX: Z00.00 Encounter for general adult medical examination without abnormal findings (principal)
CPT/HCPCS: 36415; 80053; 80061; 85025

== ENCOUNTER 2023-09-22 07:48 | Day surgery (SDC) | payer OTHER ==
[~2023-09-22 07:48] MED LIST changes: -LACTATED RINGERS 1,000 ML IV SCH; +LIDOCAINE 1% (10MG/ML) FOR IV START INTRADERMA PRN
[2023-09-22] MEDS: LACTATED RINGERS 1,000 ML IV SCH (08:05)
[2023-09-22 08:27] VITALS: TEMP 98
[2023-09-22] MEDS ORDERED: LIDOCAINE 1% INJ 10MG/ML (20 ML MDV) ONE (08:49)
[2023-09-22] MEDS ORDERED: PROPOFOL 10 MG/ML 20 ML VIAL IV ONE (08:49)
--- NOTE | 2023-09-22 09:12 | P.PCN ---
Date of Procedure: 09/22/23 Procedure(s) Performed: Brief history: Patient is a pleasant 58-year-old white female scheduled for an elective upper endoscopy as well as colonoscopy as a part of evaluation of epigastric pain and screening for colon cancer Procedure performed: Esophagogastroduodenoscopy with biopsy Colonoscopy with snare polypectomy Preoperative diagnosis: Epigastric pain Screening for colon cancer Anesthesia: MAC Procedure: After informed consent was obtained from the patient was brought into the endoscopy unit and IV sedation was administered by anesthesia under continuous monitoring. Initially upper endoscopy was done. The Olympus GF 160 video endoscope was inserted inserted into the mouth and esophagus intubated without any difficulty and was gradually advanced into the stomach and duodenum and carefully examined. The bulb and second part of the duodenum appeared normal. The scope was then withdrawn into the stomach adequately insufflated with air and upon careful examination the antrum had mild antral gastritis and biopsies were done from this area. Mucosa of the body, cardia and fundus appeared normal. The scope was then withdrawn into the esophagus. The GE junction was located at 40 cm to the incisors. It appeared regular with superficial erosions consistent with LA grade B reflux esophagitis. Rest of esophagus appeared normal and the patient tolerated the procedure well. She continued to remain sedation. Initial digital rectal examination was normal. Olympus CF 160 video colonoscope was then inserted into the rectum and gradually advanced to the cecum without any difficulty. Careful examination was performed as the scope was gradually being withdrawn. The prep was excellent. The cecum, ascending colon, transverse colon, descending colon, sigmoid colon and rectum appeared normal. Retroflexion was performed in the rectum and no lesions were noted. Patient tolerated the procedure well. Impression: 1. Upper endoscopy revealed mild antral gastritis and LA grade B reflux esophagitis 2. Colonoscopy revealed a 4 mm and 6 mm ascending colon polyp status post cold snare polypectomy and the rest of the colon appeared normal Recommendations: Findings of this examination were discussed with the patient as well as as well as a family. She was advised to follow with the biopsy results. if the biopsy result adenoma she can have a repeat colonoscopy in 5 years. In regards to the epigastric pain she was advised to try Pepcid 20 mg twice daily [id number] as needed and follow antireflux measures
[2023-09-22 09:41] VITALS: BP 121/81; PULSE 62; RESP 14
== END 2023-09-22 09:54 | disposition home or self-care (01) ==
LOC: ORWHC2ENDO 07:48
PROVIDERS: ATTEND Internal Medicine Gastroenterology
DX: Z12.11 Encounter for screening for malignant neoplasm of colon (principal); K29.50 Unspecified chronic gastritis without bleeding; K21.00 Gastro-esophageal reflux disease with esophagitis, without bleeding; D12.2 Benign neoplasm of ascending colon; Z80.0 Family history of malignant neoplasm of digestive organs; Z88.0 Allergy status to penicillin; Z88.2 Allergy status to sulfonamides; Z88.8 Allergy status to other drugs, medicaments and biological substances; Z88.1 Allergy status to other antibiotic agents; Z79.899 Other long term (current) drug therapy
CPT/HCPCS: 88305; 45385; 43239; J2001; J2704

== ENCOUNTER → 2024-06-11 | Outpatient (CLI) | payer OTHER ==
[2024-06-11 08:05] VITALS: BP 132/78; PULSE 78; RESP 16; TEMP 98.3
--- NOTE | 2024-06-11 08:41 | P.HPOB ---
History of Present Illness H&P Date: 06/11/24 Chief Complaint: The patient is here for her routine gynecologic exam and ma mmogram. This is a 59-year-old G2, P2 with an LMP of 2006. She is status post DELLA for uterine fibroids. She is without gynecologic complaints. She states she did not use the estrogen vaginal cream because of her concerns for breast cancer. States she has noticed improvement from her vaginal dryness and irritation after she changed to goat milk soap and also changed her toilet paper. Review of Systems She has lost about 10 pounds over the past year. She denies respiratory or cardiac problems. GI: Occasional constipation. Past Medical History Past Medical History: GERD/Reflux, Skin Disorder Additional Past Medical History / Comment(s): [place]. 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 History of Any Multi-Drug Resistant Organisms: None Reported Past Surgical History: Hysterectomy Additional Past Surgical History / Comment(s): DELLA in 2005. COLONOSCOPY and EGD 2023(next after 5yr). Past Anesthesia/Blood Transfusion Reactions: No Reported Reaction Past Psychological History: No Psychological Hx Reported Smoking Status: Former smoker Past Alcohol Use History: Rare (0-1 drinks per year.) Additional Past Alcohol Use History / Comment(s): SMOKED 1/2 PPD, 20 YEARS. Quit smoking in 2022. Past Drug Use History: None Reported Additional History: She has been since 2019 and this is her second marriage. She is infrequently sexually active. 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 - Past Family History Father Family Medical History: Myocardial Infarction ([place]) Brother(s) Family Medical History: Myocardial Infarction ([place]) Mother Family Medical History: Cancer Additional Family Medical History / Comment(s): from rectal cancer.She has 5 maternal aunts who had breast cancer. 1 maternal niece at age 40 developed breast cancer. Medications and Allergies Home Medications Medication Instructions Recorded Confirmed Type Ascorbic Acid [Vitamin C] 500 mg PO DAILY 09/15/23 06/11/24 History Cholecalciferol [Vitamin D3 (25 25 mcg PO DAILY 09/15/23 06/11/24 History Mcg = 1000 Iu)] Vitamin B Complex 1 each PO Q2D 09/15/23 06/11/24 History Vitamin K2 [Vitamin K-2] 100 mcg PO Q2D 09/15/23 06/11/24 History Zinc Gluconate [Zinc] 50 mg PO Q2D 09/15/23 06/11/24 History Allergies Allergy/AdvReac Type Severity Reaction Status Date / Time albuterol Allergy Dyspnea Verified 06/11/24 08:02 cefaclor [From Ceclor] Allergy Rash/Hives Verified 06/11/24 08:02 cephalexin [From Keflex] Allergy Rash/Hives Verified 06/11/24 08:02 cetirizine [From Zyrtec] Allergy Unknown Verified 06/11/24 08:02 clarithromycin [From Biaxin] Allergy Rash/Hives Verified 06/11/24 08:02 doxycycline Allergy Rash/Hives Verified 06/11/24 08:02 hydroxyzine [From Atarax] Allergy Rash/Hives Verified 06/11/24 08:02 Iodinated Contrast Media Allergy Rash/Hives Verified 06/11/24 08:02 [Iodinated Contrast- Oral and IV Dye] metronidazole Allergy Unknown Verified 06/11/24 08:02 Penicillins Allergy Rash/Hives Verified 06/11/24 08:02 Sulfa (Sulfonamide Allergy Rash/Hives Verified 06/11/24 08:02 Antibiotics) Tetracyclines Allergy Rash/Hives Verified 06/11/24 08:02 levofloxacin [From Levaquin] AdvReac severe Verified 06/11/24 08:02 joint pain Exam Vital Signs Temp Pulse Resp BP Pulse Ox 06/11/24 08:03 98.3 F 78 16 132/78 97 Intake and Output 06/10/24 06/11/24 06/11/24 22:59 06:59 14:59 Other: Weight 89.811 kg Height 5 feet 6 inches, weight 198 pounds, BMI 32.0. This is a well-developed well-nourished white female who is alert and oriented times 3 in no acute distress. HEENT: Within normal limits. NECK: Supple without mass or thyromegaly. CHEST AND LUNGS: Clear to auscultation. HEART: Regular rate and rhythm. BREASTS: Are without mass or discharge. AXILLARY EXAM: Negative for adenopathy. BACK: Negative for CVA tenderness. ABDOMEN: Soft, nontender, without palpable masses. PELVIC EXAM: External genitalia appears normal with mild atrophy. Vagina sami ears normal with mild atrophy. There is no evidence of prolapse. Bimanual examination is negative for mass or tenderness. RECTAL EXAM: Rectovaginal exam is negative for mass or tenderness and is negat addis for occult blood. EXTREMITIES: Nontender. IMPRESSION: 1. 59-year-old menopausal female status post DELLA for benign reasons, with normal gynecologic exam. 2. Strong family history of breast cancer in 5 maternal aunts and 1 maternal niece. The niece developed breast cancer at approximately age 40. PLAN: 1. Pap smears have been discontinued. 2. Self breast awareness was discussed with the patient. We have also discussed symptoms associated with inflammatory breast cancer. 3. Screening mammogram will be done today. 4. Osteoporosis prevention was discussed. 5. We have discussed cancer genetic counseling and testing. Because of her strong family history of breast cancer she would like to proceed with cancer genetic testing. She will be referred to the [facility] cancer genetic program. 6. She was advised to return in one year for her annual well woman exam.
--- NOTE | 2024-06-12 18:26 | MM ---
Reason for Exam: Screening (asymptomatic). Last mammogram was performed 1 year(s) and 5 month(s) ago. Patient History: Menarche at age 16. First Full-Term at age 20. Hysterectomy at age 41. Postmenopausal. Maternal aunt had breast cancer, age 60. Maternal aunt had breast cancer, age 55. Maternal aunt had breast cancer, age 45. Maternal aunt had breast cancer at or over age 50. Niece had breast cancer under age 50. Niece had ovarian cancer under age 50. Risk Values: Poornima 5 year model risk: 0.8%. NCI Lifetime model risk: 5.2%. Prior Study Comparison: 09/30/2021 Bilateral Screening Mammogram, [facility]. 10/04/2021 Right Diagnostic Mammogram, [facility]. 01/31/2023 Bilateral MG 3D screening mammo w/cad, [facility]. Tissue Density: The breasts are heterogeneously dense, which may obscure small masses. Findings: Analyzed By CAD. Scattered benign oil cyst calcifications. There is no suspicious group of microcalcifications or new suspicious mass in either breast. Overall Assessment: Negative, BI-RAD 1 Management: Screening Mammogram of both breasts in 1 year. . Patient should continue monthly self-breast exams. A clinical breast exam by your physician is recommended on an annual basis. This exam should not preclude additional follow-up of suspicious palpable abnormalities. Note on Poornima scores and lifetime risk: 1. A Poornima score greater than 3% is considered moderate risk. If this is the case, consider specialist referral to assess eligibility for a risk reducing agent. 2. If overall lifetime risk for the development of breast cancer is 20% or higher, the patient may qualify for future screening with alternating mammogram and breast MRI. [facility], , 06/12/2024 6:23 PM. Electronically signed and approved by: Kylah Jaquez M.D. Radiologist
== END ==
LOC: WWCWWP 07:44
PROVIDERS: ATTEND Obstetrics & Gynecology
DX: Z12.31 Encounter for screening mammogram for malignant neoplasm of breast (principal); R92.333 Mammographic heterogeneous density, bilateral breasts; R92.1 Mammographic calcification found on diagnostic imaging of breast; R92.8 Other abnormal and inconclusive findings on diagnostic imaging of breast; Z78.0 Asymptomatic menopausal state; Z80.3 Family history of malignant neoplasm of breast; Z87.891 Personal history of nicotine dependence; Z88.0 Allergy status to penicillin; Z88.1 Allergy status to other antibiotic agents; Z88.2 Allergy status to sulfonamides; Z88.8 Allergy status to other drugs, medicaments and biological substances; Z91.041 Radiographic dye allergy status
CPT/HCPCS: 77063; 77067

== ENCOUNTER → 2024-12-03 | Outpatient (CLI) | payer OTHER ==
--- NOTE | 2024-12-03 08:09 | MM ---
Reason for Exam: Clinical finding. Last screening mammogram was performed 6 month(s) ago. Patient History: Menarche at age 16. First Full-Term at age 20. Hysterectomy at age 41. Postmenopausal. Maternal aunt had breast cancer, age 60. Maternal aunt had breast cancer, age 55. Maternal aunt had breast cancer, age 45. Maternal aunt had breast cancer at or over age 50. Niece had breast cancer under age 50. Niece had ovarian cancer under age 50. Risk Values: Poornima 5 year model risk: 0.8%. NCI Lifetime model risk: 5.2%. Prior Study Comparison: 03/06/2019 Bilateral Screening Mammogram, [facility]. 05/28/2020 Bilateral Screening Mammogram, [facility]. 09/30/2021 Bilateral Screening Mammogram, [facility]. 10/04/2021 Right Diagnostic Mammogram, [facility]. 01/31/2023 Bilateral MG 3D screening mammo w/cad, [facility]. 06/11/2024 Bilateral MG 3D screening mammo w/cad, [facility]. Tissue Density: The breasts are heterogeneously dense, which may obscure small masses. Findings: Analyzed By CAD. No evidence for mass or distortion. No suspicious microcalcifications. Scattered benign punctate calcifications remain unchanged. Manage clinically with regards to patient's left axillary pain. Overall Assessment: Benign, BI-RAD 2 Management: Screening Mammogram of both breasts in 1 year. . Results were given to the patient verbally at the time of exam. Patient should continue monthly self-breast exams. A clinical breast exam by your physician is recommended on an annual basis. This exam should not preclude additional follow-up of suspicious palpable abnormalities. Note on Poornima scores and lifetime risk: 1. A Poornima score greater than 3% is considered moderate risk. If this is the case, consider specialist referral to assess eligibility for a risk reducing agent. 2. If overall lifetime risk for the development of breast cancer is 20% or higher, the patient may qualify for future screening with alternating mammogram and breast MRI. [facility], , 12/03/2024 8:06 AM. Electronically signed and approved by: Paul Gandara M.D. Radiologis
--- NOTE | 2024-12-03 14:44 | P.PN ---
Progress Note - Text Progress Note Date: 12/03/24 Received a letter from the [facility] where the patient was seen for cancer genetic counseling on 08/06/2024. The letter indicates that genetic testing was offered to the patient, but she was going to look into insurance coverage for this type of testing. The letter states that they did not hear back from the patient regarding the decision on testing. I called the patient today on 12/03/2024. Her insurance does not cover the full panel that was offered to the patient for genetic testing. She was unable to moderate amount or what the panel would cost if she paid [id number]. This would cover some type of testing, but she is not sure of the coverage. She will again try to find out what her new prescription insurance covers and will contact Sarwat henriquez whether she will have genetic testing. Patient also indicated that she called my office to let them know that she felt a lump under her and swelling that extended to the left breast. Saw her PCP and a diagnostic mammogram was done earlier today. This was felt to be benign. She states the swelling seems to have decreased. Return in June for her annual well woman examination and as needed.
== END | disposition home or self-care (01) ==
LOC: RADMAMWWP 07:50
PROVIDERS: ATTEND Internal Medicine
DX: N64.4 Mastodynia (principal); R92.1 Mammographic calcification found on diagnostic imaging of breast; R92.333 Mammographic heterogeneous density, bilateral breasts; N63.20 Unspecified lump in the left breast, unspecified quadrant; Z78.0 Asymptomatic menopausal state; Z80.3 Family history of malignant neoplasm of breast
CPT/HCPCS: 77062; 77066